=== PATIENT | female | born 1945 | race Caucasian/White ===

== ENCOUNTER 2019-01-14 14:19 | Emergency (ER) | payer MEDICARE, OTHER ==
[2019-01-14 14:51] LABS: BASOPHILS % (AUTO) 0.3 %; EOSINOPHILS % (AUTO) 0.3 %; HGB - HEMOGLOBIN 12.2 g/dL (12.0-16.0); LYMPHOCYTES # (AUTO) 0.6 10^3/uL (1.5-3.5); LYMPHOCYTES % (AUTO) 8.5 %; MEAN CORPUSCULAR HEMOGLOBIN 29.2 pg (27.0-31.0); MEAN CORPUSCULAR HGB CONC 33.3 g/dL (32.0-36.0); MEAN CORPUSCULAR VOLUME 87.8 fL (81.0-99.0); MEAN PLATELET VOLUME 8.3 fL (7.9-10.8); MONOCYTES # (AUTO) 0.8 10^3/uL (0.0-1.0); MONOCYTES % (AUTO) 12.3 %; NEUTROPHILS # (AUTO) 5.2 10^3/uL (1.5-6.6); NEUTROPHILS % (AUTO) 78.6 %; PLT - PLATELET COUNT 145 10^3/uL (130-450); RED BLOOD COUNT 4.16 10^6/uL (4.20-5.40); RED CELL DISTRIBUTION WIDTH 17.1 % (12.0-15.0); WHITE BLOOD COUNT 6.7 x10^3/uL (4.8-10.8)
[2019-01-14 15:10] LABS: ALBUMIN 3.7 g/dL (3.2-5.5); ALBUMIN/GLOBULIN RATIO 0.9 (1.0-2.2); BILIRUBIN,TOTAL 1.1 mg/dL (0.2-1.0); CALCIUM 8.8 mg/dL (8.5-10.3); CREATININE 1.2 mg/dL (0.4-1.0); TOTAL PROTEIN 7.8 g/dL (6.7-8.2)
[2019-01-14 15:29] LABS: BILIRUBIN,URINE NEGATIVE (NEGATIVE); GLUCOSE, URINE (UA) >=1000 mg/dL (NEGATIVE); KETONES,URINE (UA) NEGATIVE (NEGATIVE); LEUKOCYTE ESTERASE, URINE SMALL (NEGATIVE); NITRITE,URINE NEGATIVE (NEGATIVE); OCCULT BLOOD,URINE TRACE-LYSE (NEGATIVE); PROTEIN,URINE NEGATIVE (NEGATIVE); UROBILINOGEN,URINE 0.2 (NORMAL) E.U./dL (NORMAL)
--- NOTE | 2019-01-14 15:38 | ED Physician Documentation ---
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 - Present Medications Home Medications: Ambulatory Orders Medication Instructions Recorded Confirmed Adalimumab [Humira] 40 mg SQ UD 05/25/14 10/31/18 Aspirin 81 mg PO DAILY 05/25/14 10/31/18 Calcium Carb/Vitamin D3/Vit K1 1 tab PO BID 05/25/14 10/31/18 [Calcium + D Soft Chewable Tab] Colchicine [Colcrys] 1.2 mg PO DAILY 05/25/14 10/31/18 Folic Acid 1 mg PO DAILY 05/25/14 10/31/18 Hydrocodone/Acetaminophen [Vicodin 1 tab PO PRN PRN 05/25/14 10/31/18 5-300 mg Tablet] Hydroxychloroquine Sulfate 200 mg PO DAILY 05/25/14 10/31/18 Methotrexate 7.5 mg PO DAILY 05/25/14 10/31/18 Multivitamin [Multivitamins] 1 tab PO DAILY 05/25/14 10/31/18 [place]-3 Fatty Acids [Fish Oil] 1,000 mg PO BID 05/25/14 10/31/18 metFORMIN [Glucophage] 1,000 mg PO BID 05/25/14 10/31/18 predniSONE [Deltasone] 1 mg PO DAILY 05/25/14 10/31/18 Ascorbic Acid [Vitamin C with Vivi 1 tab PO DAILY 08/29/18 10/31/18 Hips] Biotin 1,000 mcg PO BID 08/29/18 10/31/18 Empagliflozin [Jardiance] 10 mg PO DAILY 08/29/18 10/31/18 Iron,Carbonyl [Iron Chews] 1 tab PO DAILY 08/29/18 10/31/18 - Allergies Allergies/Adverse Reactions: Allergies Allergy/AdvReac Type Severity Reaction Status Date / Time lisinopril Allergy Edema Verified 05/25/14 19:52 Penicillins AdvReac Hives Verified 05/25/14 19:52 Sulfa (Sulfonamide AdvReac Rash Verified 05/25/14 19:52 Antibiotics) venom-honey bee AdvReac Edema Verified 05/25/14 19:52 [bee venom (honey bee)] - Social History Does the pt smoke?: No Smoking Status: Former smoker Does the pt drink ETOH?: No Does the pt have substance abuse?: No - Immunizations Immunizations are current?: Yes - POLST Patient has POLST: No Results - Vitals Vitals: Vital Signs - 24 hr 01/14/19 14:24 Temperature 35.9 C L Heart Rate 96 Respiratory 14 Rate Blood Pressure 111/68 O2 Saturation 98 Oxygen O2 Source Room air - Labs Labs: Laboratory Tests 01/14/19 01/14/19 14:45 14:45 WBC 6.7 RBC 4.16 L Hgb 12.2 Hct 36.5 L MCV 87.8 MCH 29.2 MCHC 33.3 RDW 17.1 H Plt Count 145 MPV 8.3 Neut # (Auto) 5.2 Lymph # (Auto) 0.6 L [place] # (Auto) 0.8 Eos # (Auto) 0.0 Baso # (Auto) 0.0 Absolute Nucleated RBC 0.00 Nucleated RBC % 0.1 Sodium 134 L Potassium 3.8 Chloride 94 L Carbon Dioxide 25 Anion Gap 15.0 H BUN 34 H Creatinine 1.2 H Estimated GFR (MDRD) 44 L Glucose 156 H Calcium 8.8 Total Bilirubin 1.1 H AST 40 ALT 28 Alkaline Phosphatase 65 Total Protein 7.8 Albumin 3.7 Globulin 4.1 Albumin/Globulin Ratio 0.9 L Lipase 60 H
--- NOTE | 2019-01-14 15:39 | ED Physician Documentation ---
PD HPI URI - Stated complaint Stated Complaint: LETHARGIC - Chief complaint Chief Complaint: General - History obtained from History obtained from: Patient - History of Present Illness Timing - onset: How many days ago (4-5) Timing duration: Days (4-5) Timing details: Abrupt onset, Still present Associated symptoms: Nasal congestion, Other (feeling of general weakness, malaise, tired and poor appetite.). No: Fever, Chest pain, Dyspnea, NVD (but feeling of no appetite, and some food intake "doesn't taste good", so has not b een eating nor taking fluids much for 4 days. Feeling generally weak and lightheaded.) Contributing factors: No: Sick contact, Travel, Immunocompromised Worsened by: Activity Similar symptoms before: Has not had sx before Recently seen: Clinic (seen by PMD yesterday and presumed viral illness and told she seemed dehydrated. Told to drink more fluid.) Review of Systems Constitutional: reports: Myalgias, Fatigue. denies: Fever, Chills Nose: reports: Congestion. denies: Rhinorrhea / runny nose Throat: denies: Sore throat Cardiac: denies: Chest pain / pressure Respiratory: denies: Cough GI: denies: Abdominal Pain, Nausea (but feeling of no appetite), Vomiting, Constipation, Diarrhea : denies: Dysuria, Frequency Skin: denies: Rash, Lesions Neurologic: reports: Generalized weakness, Headache. 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 - Present Medications Home Medications: Ambulatory Orders Medication Instructions Recorded Confirmed Adalimumab [Humira] 40 mg SQ UD 05/25/14 10/31/18 Aspirin 81 mg PO DAILY 05/25/14 10/31/18 Calcium Carb/Vitamin D3/Vit K1 1 tab PO BID 05/25/14 10/31/18 [Calcium + D Soft Chewable Tab] Colchicine [Colcrys] 1.2 mg PO DAILY 05/25/14 10/31/18 Folic Acid 1 mg PO DAILY 05/25/14 10/31/18 Hydrocodone/Acetaminophen [Vicodin 1 tab PO PRN PRN 05/25/14 10/31/18 5-300 mg Tablet] Hydroxychloroquine Sulfate 200 mg PO DAILY 05/25/14 10/31/18 Methotrexate 7.5 mg PO DAILY 05/25/14 10/31/18 Multivitamin [Multivitamins] 1 tab PO DAILY 05/25/14 10/31/18 [place]-3 Fatty Acids [Fish Oil] 1,000 mg PO BID 05/25/14 10/31/18 metFORMIN [Glucophage] 1,000 mg PO BID 05/25/14 10/31/18 predniSONE [Deltasone] 1 mg PO DAILY 05/25/14 10/31/18 Ascorbic Acid [Vitamin C with Vivi 1 tab PO DAILY 08/29/18 10/31/18 Hips] Biotin 1,000 mcg PO BID 08/29/18 10/31/18 Empagliflozin [Jardiance] 10 mg PO DAILY 08/29/18 10/31/18 Iron,Carbonyl [Iron Chews] 1 tab PO DAILY 08/29/18 10/31/18 Cephalexin [Keflex] 500 mg PO TID #21 capsule 01/14/19 Ondansetron Odt [Zofran] 4 mg TL Q6H PRN #15 tablet 01/14/19 - Allergies Allergies/Adverse Reactions: Allergies Allergy/AdvReac Type Severity Reaction Status Date / Time lisinopril Allergy Edema Verified 05/25/14 19:52 Penicillins AdvReac Hives Verified 05/25/14 19:52 Sulfa (Sulfonamide AdvReac Rash Verified 05/25/14 19:52 Antibiotics) venom-honey bee AdvReac Edema Verified 05/25/14 19:52 [bee venom (honey bee)] - Social History Does the pt smoke?: No Smoking Status: Former smoker Does the pt drink ETOH?: No Does the pt have substance abuse?: No - Immunizations Immunizations are current?: Yes - POLST Patient has POLST: No PD ED PE NORMAL - Vitals Vital signs reviewed: Yes - General General: Alert and oriented X 3, No acute distress, Well developed/nourished - HEENT HEENT: Ears normal, Pharynx benign. No: Moist mucous membranes - Neck Neck: Supple, no meningeal sign, No adenopathy, No JVD - Cardiac Cardiac: RRR, No murmur - Respiratory Respiratory: Clear bilaterally - Abdomen Abdomen: Normal bowel sounds, Soft, Non tender, Non distended - Female Female : Deferred - Rectal Rectal: Deferred - Back Back: No CVA TTP - Derm Derm: Normal color, Warm and dry - Extremities Extremities: No tenderness to palpate, Normal ROM s pain, No edema, No calf tenderness / cord - Neuro Neuro: Alert and oriented X 3, No motor deficit, Normal speech Results - Vitals Vitals: Oxygen O2 Source Room air - Labs Labs: Microbiology 01/14/19 15:15 Urine Culture - Preliminary Urine,Clean Catch Escherichia Coli Laboratory Tests 01/14/19 01/14/19 01/14/19 14:45 14:45 14:45 WBC 6.7 RBC 4.16 L Hgb 12.2 Hct 36.5 L MCV 87.8 MCH 29.2 MCHC 33.3 RDW 17.1 H Plt Count 145 MPV 8.3 Neut # (Auto) 5.2 Lymph # (Auto) 0.6 L [place] # (Auto) 0.8 Eos # (Auto) 0.0 Baso # (Auto) 0.0 Absolute Nucleated RBC 0.00 Nucleated RBC % 0.1 Sodium 134 L Potassium 3.8 Chloride 94 L Carbon Dioxide 25 Anion Gap 15.0 H BUN 34 H Creatinine 1.2 H Estimated GFR (MDRD) 44 L Glucose 156 H Calcium 8.8 Magnesium Total Bilirubin 1.1 H AST 40 ALT 28 Alkaline Phosphatase 65 Total Protein 7.8 Albumin 3.7 Globulin 4.1 Albumin/Globulin Ratio 0.9 L Lipase 60 H TSH 2.19 Urine Color Urine Clarity Urine pH Ur Specific [place] Urine Protein Urine Glucose (UA) Urine Ketones Urine Occult Blood Urine Nitrite Urine Bilirubin Urine Urobilinogen Ur Leukocyte Esterase Urine RBC Urine WBC Ur Squamous Epith Cells Urine Bacteria Ur Microscopic Review Urine Culture Comments Influenza A (Rapid) Influenza B (Rapid) 01/14/19 01/14/19 01/14/19 14:45 15:15 16:25 WBC RBC Hgb Hct MCV MCH MCHC RDW Plt Count MPV Neut # (Auto) Lymph # (Auto) [place] # (Auto) Eos # (Auto) Baso # (Auto) Absolute Nucleated RBC Nucleated RBC % Sodium Potassium Chloride Carbon Dioxide Anion Gap BUN Creatinine Estimated GFR (MDRD) Glucose Calcium Magnesium 2.2 Total Bilirubin AST ALT Alkaline Phosphatase Total Protein Albumin Globulin Albumin/Globulin Ratio Lipase TSH Urine Color YELLOW Urine Clarity CLEAR Urine pH 6.0 Ur Specific [place] <=1.005 Urine Protein NEGATIVE Urine Glucose (UA) >=1000 H Urine Ketones NEGATIVE Urine Occult Blood TRACE-LYSE Urine Nitrite NEGATIVE Urine Bilirubin NEGATIVE Urine Urobilinogen 0.2 (NORMAL) Ur Leukocyte Esterase SMALL H Urine RBC 0-5 Urine WBC 11-25 H Ur Squamous Epith Cells RARE Squamous Urine Bacteria Rare Ur Microscopic Review INDICATED Urine Culture Comments INDICATED Influenza A (Rapid) Negative Influenza B (Rapid) Negative PD MEDICAL DECISION MAKING - ED course Complexity details: reviewed results, re-evaluated patient (seems improved with some IV fluids and antiemetics. Taking PO fluids. Headache improved and she does not seem meningitic, with no fever. I do not feel LP is indicated. ), considered differential, d/w patient Departure - Departure Disposition: Home, Self Care Clinical Impression: Malaise and fatigue, Dehydration UTI (urinary tract infection) Qualifiers: Urinary tract infection type: acute cystitis Hematuria presence: without hematuria Qualified Code(s): N30.00 - Acute cystitis without hematuria Condition: Stable Record reviewed to determine appropriate education?: Yes Instructions: ED UTI Cystitis Female Follow-Up: Ruthie Resendiz PA-C [Primary Care Provider] - Prescriptions: Cephalexin [Keflex] 500 mg PO TID #21 capsule Ondansetron Odt [Zofran] 4 mg TL Q6H PRN #15 tablet PRN Reason: Nausea / Vomiting Comments: Your basic blood tests are without any obvious significant abnormality. Your urine test does show signs of infection. This may be enough to account for your symptoms you have had. We will treat the bladder infection with cephalexin 3 times a day for a week. Drink lots of fluids. Ondansetron if needed for nausea or even just lack of appetite as that may be a mild version of nausea. Recheck if not improving over the next couple of days. Return if other symptoms develop. Discharge Date/Time: 01/14/19 18:13
[2019-01-14 15:47] LABS: BACTERIA,URINE Rare /HPF (None Seen); CLARITY,URINE CLEAR (CLEAR); RBC,URINE 0-5 /HPF (0-5); SQUAMOUS EPITHELIAL CELL,UR RARE Squamous (<= Few)
[2019-01-14] MEDS ORDERED: SODIUM CHLORIDE 0.9% 1,000 ML IV ONE ×2 (15:53→15:54)
[2019-01-14] MEDS ORDERED: ONDANSETRON 4 MG/2 ML VIAL IVP STA (15:54)
[2019-01-14] MEDS ORDERED: cefTRIAXone 1 GM VIAL IVP STA (15:57)
[2019-01-14] MEDS ORDERED: MORPHINE 2 MG/ML CARPUJECT IVP STA (17:17)
[2019-01-14] MEDS ORDERED: KETOROLAC 15 MG/ML VIAL IVP STA (17:17)
[2019-01-14] MEDS ORDERED: DEXAMETHASONE 10 MG/ML VIAL IVP STA (17:17)
[2019-01-14 18:15] VITALS: BP 131/59
== END 2019-01-14 18:13 | disposition home or self-care (01) ==
LOC: ED 14:19
DX: N30.00 Acute cystitis without hematuria (principal); E86.0 Dehydration; E11.9 Type 2 diabetes mellitus without complications; Z79.84 Long term (current) use of oral hypoglycemic drugs; Z87.891 Personal history of nicotine dependence
CPT/HCPCS: 36415; 80053; 81001; 81003; 83690; 83735; 84443; 85025; 87086; 87181; 87275; 87276; 96361; 96374; 96375; 99283; 99284

== ENCOUNTER 2019-05-18 11:34 | Outpatient (CLI) | payer MEDICARE ==
[2019-05-18 15:37] LABS: BASOPHILS % (AUTO) 0.7 %; EOSINOPHILS # (AUTO) 0.2 10^3/uL (0.0-0.7); EOSINOPHILS % (AUTO) 5.5 %; HGB - HEMOGLOBIN 10.8 g/dL (12.0-16.0); LYMPHOCYTES # (AUTO) 0.7 10^3/uL (1.5-3.5); LYMPHOCYTES % (AUTO) 15.2 %; MEAN CORPUSCULAR HEMOGLOBIN 28.6 pg (27.0-31.0); MEAN CORPUSCULAR HGB CONC 30.5 g/dL (32.0-36.0); MEAN CORPUSCULAR VOLUME 93.9 fL (81.0-99.0); MEAN PLATELET VOLUME 10.8 fL (7.9-10.8); MONOCYTES # (AUTO) 0.4 10^3/uL (0.0-1.0); MONOCYTES % (AUTO) 8.5 %; NEUTROPHILS % (AUTO) 69.6 %; PLT - PLATELET COUNT 122 10^3/uL (130-450); RED BLOOD COUNT 3.77 10^6/uL (4.20-5.40); RED CELL DISTRIBUTION WIDTH 15.1 % (12.0-15.0); WHITE BLOOD COUNT 4.3 x10^3/uL (4.8-10.8)
[2019-05-18 16:06] LABS: ALBUMIN 3.6 g/dL (3.2-5.5); BILIRUBIN,TOTAL 0.6 mg/dL (0.2-1.0); CALCIUM 9.9 mg/dL (8.5-10.3); CREATININE 0.9 mg/dL (0.4-1.0); TOTAL PROTEIN 7.2 g/dL (6.7-8.2)
== END 2019-05-18 23:59 | disposition home or self-care (01) ==
LOC: LAB 11:34
PROVIDERS: ATTEND Physician Assistant Medical
DX: R10.30 Lower abdominal pain, unspecified (principal)
CPT/HCPCS: 80053; 83690; 85025

== ENCOUNTER 2019-05-18 15:09 | Outpatient (CLI) | payer MEDICARE ==
[2019-05-18] MEDS ORDERED: IOVERSOL 320 100 ML VIAL IVP ONE ×2 (15:22→16:57)
[2019-05-18] MEDS ORDERED: IOVERSOL 320 50 ML VIAL ONE (15:22)
[2019-05-18] MEDS ORDERED: IOVERSOL 320 50 ML VIAL PO ONE (16:57)
--- NOTE | 2019-05-18 16:58 | CT Report ---
Reason: ABDOMINAL PAIN, SUPRAPUBIC Procedure Date: 05/18/2019 Accession Number: [id number] / [id number] Procedure: CT - Abdomen/Pelvis W CPT Code: FULL RESULT: EXAM: CT ABDOMEN AND PELVIS EXAM DATE: 05/18/2019 04:30 PM. CLINICAL HISTORY: ABDOMINAL PAIN, SUPRAPUBIC. COMPARISONS: None. TECHNIQUE: Routine helical CT imaging was performed through the abdomen and pelvis. IV contrast: 100 cc Optiray 320. Enteric contrast: Positive. Reconstructions: Coronal and sagittal. In accordance with CT protocol optimization, one or more of the following dose reduction techniques were utilized for this exam: automated exposure control, adjustment of mA and/or KV based on patient size, or use of iterative reconstructive technique. FINDINGS: Lung Bases: Unremarkable. Liver: Normal. No masses. Gallbladder/Bile Ducts: The gallbladder is surgically absent. No significant bile duct dilatation. Spleen: There is mild splenomegaly. Subcentimeter hypodensity within the posterior cortex of the spleen is too small to characterize. Pancreas: Normal. Adrenal Glands: Normal. Kidneys: Normal. No masses or hydronephrosis. Peritoneal Cavity/Bowel: No dilated or thick-walled bowel is seen. No intraperitoneal free air or free fluid. No enlarged mesenteric or retroperitoneal lymph nodes. No evidence of appendicitis. Pelvic Organs: Normal. The bladder and visualized pelvic organs are within normal limits. Vasculature: No aneurysms or other significant abnormality. Bones: There is mild to moderate multilevel lumbar spine degenerative disease. Other: None. IMPRESSION: Negative contrast enhanced CT of the abdomen and pelvis. No acute solid or hollow viscus organ abnormality to account for the patient's presentation. RADIA
== END 2019-05-18 15:10 | disposition home or self-care (01) ==
LOC: DI 15:09
PROVIDERS: ATTEND Physician Assistant Medical
DX: R10.30 Lower abdominal pain, unspecified (principal)
CPT/HCPCS: 74177; 80053; 83690; 85025; Q9967

== ENCOUNTER 2019-05-30 08:00 | Outpatient (CLI) | payer MEDICARE | END 2019-05-30 23:59 | disposition home or self-care (01) | LOC: LAB.WCP 08:00 | PROVIDERS: ATTEND Physician Assistant Medical | DX: R10.30 Lower abdominal pain, unspecified (principal) | CPT/HCPCS: 87077; 87086; 87181 ==

== ENCOUNTER 2019-08-04 14:51 | Outpatient (CLI) | payer MEDICARE ==
[2019-08-04 15:06] LABS: HGB - HEMOGLOBIN 11.6 g/dL (12.0-16.0); MEAN CORPUSCULAR HEMOGLOBIN 29.1 pg (27.0-31.0); MEAN CORPUSCULAR HGB CONC 30.5 g/dL (32.0-36.0); MEAN CORPUSCULAR VOLUME 95.5 fL (81.0-99.0); MEAN PLATELET VOLUME 9.5 fL (7.9-10.8); RED BLOOD COUNT 3.98 10^6/uL (4.20-5.40); RED CELL DISTRIBUTION WIDTH 14.7 % (12.0-15.0); WHITE BLOOD COUNT 5.7 x10^3/uL (4.8-10.8)
[2019-08-04 15:35] LABS: CREATININE,URINE 37.8 mg/dL; TOTAL PROTEIN,URINE TIMED < 6 mg/dL
== END 2019-08-04 14:52 | disposition home or self-care (01) ==
LOC: LAB 14:51
PROVIDERS: ATTEND Internal Medicine Nephrology
DX: D70.9 Neutropenia, unspecified (principal); D63.1 Anemia in chronic kidney disease; R80.9 Proteinuria, unspecified
CPT/HCPCS: 36415; 82570; 84156; 85027

== ENCOUNTER 2021-02-20 08:38 | Outpatient (CLI) | payer MEDICARE ==
[2021-02-20 12:47] LABS: ESTIMATED AVERAGE GLUCOSE 249 mg/dL (70-100); HEMOGLOBIN A1c% 10.3 % (4.27-6.07)
== END 2021-02-20 23:59 | disposition home or self-care (01) ==
LOC: LAB.WCP 08:38
PROVIDERS: ATTEND Physician Assistant Medical
DX: E11.9 Type 2 diabetes mellitus without complications (principal)
CPT/HCPCS: 36415; 83036

== ENCOUNTER 2021-05-19 08:42 | Outpatient (CLI) | payer MEDICARE ==
[2021-05-19 09:15] LABS: CHOLESTEROL 181 mg/dL; HDL CHOLESTEROL 89 mg/dL; LDL CHOLESTEROL,CALCULATED 63 mg/dL; LDL/HDL RATIO 0.7 (<4.4); TRIGLYCERIDES 147 mg/dL; VLDL CHOLESTEROL 29 mg/dL
[2021-05-19 09:25] LABS: THYROID STIMULATING HORMONE 2.2 uIU/mL (0.34-5.60)
[2021-05-19 11:28] LABS: ESTIMATED AVERAGE GLUCOSE 192 mg/dL (70-100); HEMOGLOBIN A1c% 8.3 % (4.27-6.07)
== END 2021-05-19 08:43 | disposition home or self-care (01) ==
LOC: LAB 08:42
PROVIDERS: ATTEND Physician Assistant Medical
DX: E78.5 Hyperlipidemia, unspecified (principal); E11.9 Type 2 diabetes mellitus without complications
CPT/HCPCS: 36415; 80061; 83036; 83721; 84443

== ENCOUNTER 2021-05-22 10:09 | Outpatient (CLI) | payer MEDICARE ==
[2021-05-22] MEDS ORDERED: BUFFERED LIDOCAINE 10 ML SYRINGE ONE (10:40)
[2021-05-22] MEDS ORDERED: LACTATED RINGERS 1,000 ML IV ONE ×2 (10:47→12:22)
[2021-05-22 10:56] LABS: HCT - HEMATOCRIT 32.2 % (37.0-47.0); HGB - HEMOGLOBIN 10.5 g/dL (12.0-16.0)
[2021-05-22] MEDS ORDERED: hydrALAZINE INJ 20 MG/ML VIAL ONE (11:01)
[2021-05-22] MEDS ORDERED: NALOXONE 0.4 MG/ML VIAL ONE (11:01)
[2021-05-22] MEDS ORDERED: ONDANSETRON 4 MG/2 ML VIAL ONE (11:01)
[2021-05-22] MEDS ORDERED: FLUMAZENIL 0.1 MG/1 ML 5 ML MDV IVP ONE (11:01)
[2021-05-22] MEDS ORDERED: diphenhydrAMINE INJ 50 MG/ML VIAL ONE (11:01)
[2021-05-22] MEDS ORDERED: ATROPINE ABBOJECT 1 MG/10 ML SYRINGE IVP ONE (11:02)
[2021-05-22] MEDS ORDERED: LABETALOL 20 MG/4 ML SYRINGE IVP ONE (11:02)
[2021-05-22] MEDS ORDERED: EPINEPHrine 1 MG/ML VIAL ONE (11:02)
[2021-05-22] MEDS ORDERED: fentaNYL 250 MCG/5 ML VIAL ONE (11:02)
[2021-05-22] MEDS ORDERED: MIDAZOLAM 2 MG/2 ML VIAL ONE ×2 (11:03→11:34)
[2021-05-22 11:09] LABS: INR 1.1 (0.8-1.2); PT - PROTHROMBIN TIME 12.3 secs (9.9-12.6)
[2021-05-22] MEDS ORDERED: fentaNYL 100 MCG/2 ML VIAL ONE (11:34)
[2021-05-22] MEDS ORDERED: BUFFERED LIDOCAINE 10 ML SYRINGE IU ONE (13:24)
[2021-05-22 14:18] VITALS: BP 134/70
--- NOTE | 2021-05-22 14:59 | CT Report ---
PROCEDURE: BONE MARROW BX Sedation analgesia for 10 minutes. INDICATIONS: PANCYTOPENIA, RT BREAST CANCER TECHNIQUE: The indications, alternatives, benefits, risks, and possible complications of the procedure were comm unicated to the patient. Informed written consent from the patient was obtained and placed in the art. Continuous EKG and hemodynamic monitoring was started by trained personnel. For radiation dose reduction, the following was used: automated exposure control, adjustment of mA and/or kV according to patient size. The patient was brought to the CT suite and army senior officer spiral CT imaging was performed with localization g rid. The appropriate site for percutaneous access to the biopsy target was marked, was prepped and d raped sterilely, and was infused with local anaesthesia. Under CT guidance, a core biopsy trocar and needle set was advanced to the biopsy target, and specimen(s) were obtained. The trocar and needle were then removed, and the patient was sent for post-procedure monitoring. COMPARISON: None. FINDINGS: Biopsy site: Left iliac bone. Needle: 12 gauge biopsy needle with introducer trocar. Number of passes: No core biopsy and 20 cc of marrow aspirate Medications: 1% lidocaine for local anaesthesia. IV Fentanyl and Versed for conscious sedation for 10 minutes (see nursing record). Complications: None. IMPRESSION: Successful CT-guided biopsy of left iliac bone marrow. No immediate complications. Reviewed by: Nicolasa Kraus MD, PhD on 05/22/2021 2:58 PM PDT Approved by: Nicolasa Kraus MD, PhD on 05/22/2021 2:58 PM PDT Station ID: [id number]
--- NOTE | 2021-07-14 10:03 | CT Report ---
PROCEDURE: CT scan for Needle Biopsy INDICATIONS: PANCYTOPENIA, RT BREAST CA IMPRESSION: This study has been previously dictated, CT procedure combined with the needle biopsy pro cedure. Please refer to that study report. Reviewed by: Ruslan Stark MD on 07/14/2021 10:01 AM PDT Approved by: Ruslan Stark MD on 07/14/2021 10:01 AM PDT Station ID: [id number]
== END 2021-05-22 10:10 | disposition home or self-care (01) ==
LOC: DI 10:09
PROVIDERS: ATTEND Physician Assistant
DX: D61.818 Other pancytopenia (principal); C50.911 Malignant neoplasm of unspecified site of right female breast
CPT/HCPCS: 36415; 38220; 77012; 85014; 85018; 85049; 85610; J7120; 38221; 87427; 88184; 88185; 88305; 88311; 88313

== ENCOUNTER 2021-07-29 10:53 | Emergency (ER) | payer MEDICARE ==
[2021-07-29 11:34] LABS: BASOPHILS # (AUTO) 0.1 10^3/uL (0.0-0.1); BASOPHILS % (AUTO) 1.1 %; EOSINOPHILS # (AUTO) 0.2 10^3/uL (0.0-0.7); EOSINOPHILS % (AUTO) 4.4 %; HCT - HEMATOCRIT 32.8 % (37.0-47.0); HGB - HEMOGLOBIN 10.4 g/dL (12.0-16.0); LYMPHOCYTES # (AUTO) 0.5 10^3/uL (1.5-3.5); LYMPHOCYTES % (AUTO) 9.9 %; MEAN CORPUSCULAR HEMOGLOBIN 29.5 pg (27.0-31.0); MEAN CORPUSCULAR HGB CONC 31.7 g/dL (32.0-36.0); MEAN CORPUSCULAR VOLUME 93.2 fL (81.0-99.0); MEAN PLATELET VOLUME 10.8 fL (7.9-10.8); MONOCYTES # (AUTO) 0.4 10^3/uL (0.0-1.0); MONOCYTES % (AUTO) 9.3 %; NEUTROPHILS # (AUTO) 3.4 10^3/uL (1.5-6.6); NEUTROPHILS % (AUTO) 74.9 %; PLT - PLATELET COUNT 86 10^3/uL (130-450); RED BLOOD COUNT 3.52 10^6/uL (4.20-5.40); RED CELL DISTRIBUTION WIDTH 12.2 % (12.0-15.0); WHITE BLOOD COUNT 4.5 x10^3/uL (4.8-10.8)
--- NOTE | 2021-07-29 11:39 | ED Physician Documentation ---
History of Present Illness - Stated complaint Stated Complaint: CHEST PX - Chief complaint Chief Complaint: Cardiac - Additonal information Additional information: 75-year-old female presents the emergency department for evaluation of 2 to 3 days chest pressure and discomfort. She reports that it is mostly at night when laying flat. She develops a pressure in her chest and often has to cough. Pain is severe until she sits up. If she remains sitting up or propped up on her pillow she is able to fall back asleep. States that the chest pain accompanies shortness of breath. She typically was able to walk about a mile a day but now gets short of breath when walking perhaps 500 feet. she denies leg swelling. no personal hx of dvt. She does have a history of diabetes as well as being a former smoker apparently also has a history of RA, zapata cytopenia and breast cancer. She is immune suppressed on lefulmide, prednisone and Plaquenil. She is also taking tamoxifen. Recently undewent a bone marrow biopsy for further evaluation of her pancytopenia Denies any personal history of coronary artery disease previos stroke Review of Systems Constitutional: denies: Fever, Chills Eyes: reports: Reviewed and negative Ears: reports: Reviewed and negative Nose: reports: Reviewed and negative Throat: reports: Reviewed and negative Cardiac: reports: Chest pain / pressure. denies: Palpitations, Pedal edema, Calf pain Respiratory: denies: Dyspnea, Cough, Hemoptysis, Wheezing GI: reports: Reviewed and negative. denies: Nausea, Vomiting : reports: Reviewed and negative. 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 - Present Medications Home Medications: Ambulatory Orders Medication Instructions Recorded Confirmed Aspirin 81 mg PO DAILY 05/25/14 07/29/21 Calcium Carb/Vitamin D3/Vit K1 600 mg PO BID 05/25/14 07/29/21 [Calcium + D Soft Chewable Tab] Folic Acid 1 mg PO DAILY 05/25/14 07/29/21 Multivitamin [Multivitamins] 1 tab PO DAILY 05/25/14 07/29/21 [place]-3 Fatty Acids [Fish Oil] 1,000 mg PO BID 05/25/14 07/29/21 metFORMIN [Glucophage] 1,000 mg PO BID 05/25/14 07/29/21 Ascorbic Acid [Vitamin C with Vivi 1 tab PO DAILY 08/29/18 07/29/21 Hips] Iron,Carbonyl [Iron Chews] 65 mg PO DAILY 08/29/18 07/29/21 Tamoxifen [Nolvadex] 20 mg PO DAILY 03/27/19 07/29/21 Glimepiride [Amaryl] 2 mg PO DAILY 07/29/21 07/29/21 Leflunomide [Arava] 20 mg PO DAILY 07/29/21 07/29/21 - Allergies Allergies/Adverse Reactions: Allergies Allergy/AdvReac Type Severity Reaction Status Date / Time lisinopril Allergy Edema Verified 07/29/21 11:05 Penicillins AdvReac Hives Verified 07/29/21 11:05 Sulfa (Sulfonamide AdvReac Rash Verified 07/29/21 11:05 Antibiotics) venom-honey bee AdvReac Edema Verified 07/29/21 11:05 [bee venom (honey bee)] - Social History Does the pt smoke?: No Smoking Status: Never smoker Does the pt drink ETOH?: No Does the pt have substance abuse?: No - Immunizations Immunizations are current?: Yes - POLST Patient has POLST: No PD ED PE EXPANDED - General General: Alert, No acute distress, Well developed/nourished - Neck Neck: Supple w/out meningeal sx. No: Adenopathy - Cardiac Cardiac: Regular Rate, Radial strong equal, Cap refill < 2 sec. No: Murmur Present - Respiratory Respiratory: Clear to ausultation june. No: Distress, Labored - Abdomen Abdomen: Normal Bowel sounds. No: Hyperactive BS, Decreased BS - Derm Derm: Normal color, Warm and dry. No: Rash - Extremities Extremities: Normal. No: Deformity, Tenderness - Neuro Neuro: Alert and Oriented X 3, CNII-XII intact - GCS Eye Opening: Spontaneous Motor: Obeys Commands Verbal: Oriented Total: 15 Results - Vitals Vitals: Vital Signs - 24 hr 07/29/21 07/29/21 07/29/21 11:00 12:39 13:09 Temperature 37.0 C Heart Rate 101 H 104 H 114 H Respiratory 22 16 20 Rate Blood Pressure 132/73 H 132/73 H 154/84 H O2 Saturation 97 99 96 07/29/21 07/29/21 07/29/21 13:30 14:00 14:30 Temperature Heart Rate 103 H 100 101 H Respiratory 22 17 16 Rate Blood Pressure 160/86 H 149/87 H 150/94 H O2 Saturation 97 100 99 07/29/21 07/29/21 15:00 15:30 Temperature Heart Rate 102 H 100 Respiratory 19 18 Rate Blood Pressure 150/85 H 149/60 H O2 Saturation 98 99 Oxygen O2 Source Room air - EKG (time done) 1058 Rate: Rate (enter#) (100) Rhythm: Sinus tachycardia Intervals: Other (IVCD not RBBB or LBBB) QRS: Poor R wave progression. No: Normal (Wide) Ischemia: Non specific changes Compare to prior EKG: Old EKG unavailable Computer interpretation: Agree with computer - Labs Labs: Laboratory Tests 07/29/21 07/29/21 07/29/21 11:27 11:27 11:27 WBC 4.5 L RBC 3.52 L Hgb 10.4 L Hct 32.8 L MCV 93.2 MCH 29.5 MCHC 31.7 L RDW 12.2 Plt Count 86 L MPV 10.8 Neut # (Auto) 3.4 Lymph # (Auto) 0.5 L [place] # (Auto) 0.4 Eos # (Auto) 0.2 Baso # (Auto) 0.1 Absolute Nucleated RBC 0.00 Nucleated RBC % 0.0 Sodium 136 Potassium 4.7 Chloride 101 Carbon Dioxide 24 Anion Gap 11.0 BUN 16 Creatinine 1.2 H Estimated GFR (MDRD) 44 L Glucose 215 H Calcium 9.0 Total Bilirubin 0.6 AST 40 ALT 37 Alkaline Phosphatase 43 Troponin I High Sens 429.1 H* Total Protein 6.6 L Albumin 3.3 Globulin 3.3 Albumin/Globulin Ratio 1.0 Lipase 42 Nasal Adenovirus (PCR) Nasal B. parapertussis DNA (PCR) Nasal Coronavir 229E PCR Nasal Coronavir HKU1 PCR Nasal Coronavir NL63 PCR Nasal Coronavir OC43 PCR Nasal Enterovir/Rhinovir PCR Nasal Influenza B PCR Nasal Influenza A PCR Nasal Parainfluen 1 PCR Nasal Parainfluen 2 PCR Nasal Parainfluen 3 PCR Nasal Parainfluen 4 PCR Nasal RSV (PCR) Nasal B.pertussis DNA PCR Nasal C.pneumoniae (PCR) Matt Human Metapneumo PCR Nasal M.pneumoniae (PCR) Nasal SARS-CoV-2 (PCR) 07/29/21 07/29/21 12:26 13:21 WBC RBC Hgb Hct MCV MCH MCHC RDW Plt Count MPV Neut # (Auto) Lymph # (Auto) [place] # (Auto) Eos # (Auto) Baso # (Auto) Absolute Nucleated RBC Nucleated RBC % Sodium Potassium Chloride Carbon Dioxide Anion Gap BUN Creatinine Estimated GFR (MDRD) Glucose Calcium Total Bilirubin AST ALT Alkaline Phosphatase Troponin I High Sens 482.1 H* Total Protein Albumin Globulin Albumin/Globulin Ratio Lipase Nasal Adenovirus (PCR) NOT DETECTED Nasal B. parapertussis DNA (PCR) NOT DETECTED Nasal Coronavir 229E PCR NOT DETECTED Nasal Coronavir HKU1 PCR NOT DETECTED Nasal Coronavir NL63 PCR NOT DETECTED Nasal Coronavir OC43 PCR NOT DETECTED Nasal Enterovir/Rhinovir PCR NOT DETECTED Nasal Influenza B PCR NOT DETECTED Nasal Influenza A PCR NOT DETECTED Nasal Parainfluen 1 PCR NOT DETECTED Nasal Parainfluen 2 PCR NOT DETECTED Nasal Parainfluen 3 PCR NOT DETECTED Nasal Parainfluen 4 PCR NOT DETECTED Nasal RSV (PCR) NOT DETECTED Nasal B.pertussis DNA PCR NOT DETECTED Nasal C.pneumoniae (PCR) NOT DETECTED Matt Human Metapneumo PCR NOT DETECTED Nasal M.pneumoniae (PCR) NOT DETECTED Nasal SARS-CoV-2 (PCR) NOT DETECTED - Rads (name of study) CXR Radiology: Final report received (Interstitial prominence which could represent chronic lung disease, pulmonary edema or atypical pneumonia.) PD MEDICAL DECISION MAKING - ED course Complexity details: reviewed results, considered differential, d/w patient ED course: 75-year-old female who has a history of diabetes, rheumatoid arthritis as well as pancytopenia who is immune suppressed on Plaquenil and prednisone presents emergency department with 3 days of chest discomfort. Described as a throbbing in her chest pressure-like. Worse when she lays down. Feels better after coughing or sitting upright. Screening EKG is nonischemic though no previous for comparison. First high- sensitivity troponin is 429. Patient does have many risk factors for coronary artery disease including history of diabetes tobaccoism as well as immune suppression. She was started on cardiac heparin infusion per protocol as well as given 80 mg of atorvastatin and 325 of aspirin. [facility] does not have cardiology services thus we will start the process of looking for a cardiology bed at an outlying facility. Patient is not yet assigned to a occup ther. 1310: I have spoken with Dr. Deshpande cardiology with [facility]. he accepts the pt to [facility] when a bed is available. Appropriate COBRA completed Departure - Departure Disposition: 02 Transfer Acute Care Hosp Clinical Impression: NSTEMI (non-ST elevated myocardial infarction), History of diabetes mellitus, type II, History of breast cancer Discharge Date/Time: 07/29/21 16:02
--- NOTE | 2021-07-29 11:42 | XRAY Report ---
PROCEDURE: Chest 1 View X-Ray INDICATIONS: Chest pain TECHNIQUE: One view of the chest was acquired. COMPARISON: None FINDINGS: Surgical changes and devices: Surgical clips noted in the right axilla. Lungs and pleura: No pleural effusions or pneumothorax. Bilateral lung interstitial prominence which could represent chronic lung disease, pulmonary edema or atypical pneumonia. Mediastinum: Mediastinal contours appear normal. Heart size is normal. Bones and chest wall: No suspicious bony lesions. Overlying soft tissues appear unremarkable. IMPRESSION: Interstitial prominence which could represent chronic lung disease, pulmonary edema or atypical pneum onia. Reviewed by: Nicolasa Kraus MD, PhD on 07/29/2021 11:40 AM PDT Approved by: Nicolasa Kraus MD, PhD on 07/29/2021 11:40 AM PDT Station ID: [id number]
[2021-07-29 11:51] LABS: ALBUMIN 3.3 g/dL (3.2-5.5); BILIRUBIN,TOTAL 0.6 mg/dL (0.2-1.0); CREATININE 1.2 mg/dL (0.4-1.0); POTASSIUM 4.7 mmol/L (3.5-5.0); TOTAL PROTEIN 6.6 g/dL (6.7-8.2)
[2021-07-29] MEDS ORDERED: ATORVASTATIN 40 MG TABLET PO STA (12:02)
[2021-07-29] MEDS ORDERED: ASPIRIN CHEW 81 MG TABLET PO STA (12:02)
[2021-07-29] MEDS ORDERED: NITROGLYCERIN SL 0.4 MG TABLET SL STA (12:07)
[2021-07-29] MEDS ORDERED: HEPARIN 25000UNITS/500ML (D5W) 25,000 UNIT/500 ML BAG IV SCH (13:00)
[2021-07-29 14:07] LABS: B. PARAPERTUSSIS- RESP PCR PAN NOT DETECTED; B. PERTUSSIS- RESP PCR PANEL NOT DETECTED; C. PNEUMONIAE- RESP PCR PANEL NOT DETECTED; CORONAVIRUS 229E-RESP PCR NOT DETECTED; CORONAVIRUS HKU1-RESP PCR NOT DETECTED; CORONAVIRUS NL63-RESP PCR NOT DETECTED; CORONAVIRUS OC43-RESP PCR NOT DETECTED; HUMAN METAPNEUMOVIRUS NOT DETECTED; INFLUENZA A- RESP PCR PANEL NOT DETECTED; INFLUENZA B - RESP PCR PANEL NOT DETECTED; M. PNEUMONIAE- RESP PCR PANEL NOT DETECTED; PARAINFLUENZA VIRUS 1 NOT DETECTED; PARAINFLUENZA VIRUS 2 NOT DETECTED; PARAINFLUENZA VIRUS 3 NOT DETECTED; PARAINFLUENZA VIRUS 4 NOT DETECTED; RHINOVIRUS/ENTEROVIRUS NOT DETECTED; RSV- RESP PCR PANEL NOT DETECTED; SARS-CoV-2 -RESP PCR PANEL NOT DETECTED
[2021-07-29 15:41] VITALS: BP 149/60
== END 2021-07-29 16:02 | disposition short-term general hospital (02) ==
LOC: ED 10:53
DX: I21.4 Non-ST elevation (NSTEMI) myocardial infarction (principal); R00.0 Tachycardia, unspecified; Z87.891 Personal history of nicotine dependence; E11.9 Type 2 diabetes mellitus without complications; Z79.84 Long term (current) use of oral hypoglycemic drugs; D61.818 Other pancytopenia; M06.9 Rheumatoid arthritis, unspecified; D84.9 Immunodeficiency, unspecified; Z79.899 Other long term (current) drug therapy; Z79.52 Long term (current) use of systemic steroids; Z79.82 Long term (current) use of aspirin; Z85.3 Personal history of malignant neoplasm of breast; Z20.822 Contact with and (suspected) exposure to COVID-19
CPT/HCPCS: 36415; 71045; 80053; 83690; 84484; 85025; 87631; 93005; 96374; 99284; 99285; A9270; 0202U

== ENCOUNTER 2021-08-26 08:50 | Outpatient (CLI) | payer MEDICARE ==
[2021-08-26 12:18] LABS: CALCIUM 8.6 mg/dL (8.5-10.3); CREATININE 0.9 mg/dL (0.4-1.0); POTASSIUM 4.2 mmol/L (3.5-5.0)
[2021-08-26 12:57] LABS: ESTIMATED AVERAGE GLUCOSE 177 mg/dL (70-100); HEMOGLOBIN A1c% 7.8 % (4.27-6.07)
== END 2021-08-26 23:59 | disposition home or self-care (01) ==
LOC: LAB.WCP 08:50
PROVIDERS: ATTEND Physician Assistant Medical
DX: E11.9 Type 2 diabetes mellitus without complications (principal)
CPT/HCPCS: 36415; 80048; 83036

== ENCOUNTER 2021-11-06 08:30 | Outpatient (CLI) | payer MEDICARE | END 2021-11-06 23:59 | disposition home or self-care (01) | LOC: LAB.N 08:30 | PROVIDERS: ATTEND Nurse Practitioner | DX: R05.8 Other specified cough (principal); Z20.822 Contact with and (suspected) exposure to COVID-19 ==

== ENCOUNTER 2021-11-23 09:28 | Emergency (ER) | payer MEDICARE ==
[2021-11-23] MEDS ORDERED: DEXAMETHASONE 10 MG/ML VIAL PO STA (11:15)
[2021-11-23] MEDS ORDERED: CHERRY SYRUP 10 ML UDC PO ONE (11:15)
[2021-11-23] MEDS ORDERED: KETOROLAC 60 MG/2 ML VIAL IM STA (11:15)
--- NOTE | 2021-11-23 11:44 | XRAY Report ---
PROCEDURE: Chest 2 View X-Ray INDICATIONS: persistent cough TECHNIQUE: 2 view(s) of the chest. COMPARISON: 07/29/2021 FINDINGS: Surgical changes and devices: Median sternotomy. Right chest wall surgical clips. Lungs and pleura: No pleural effusions or pneumothorax. Lungs are clear. Mediastinum: Mediastinal contours are normal. Heart size is normal. Bones and chest wall: No suspicious bony abnormalities. Soft tissues appear unremarkable. IMPRESSION: No acute process. Reviewed by: Villa Conklin MD on 11/23/2021 11:43 AM PST Approved by: Villa Conklin MD on 11/23/2021 11:43 AM [facility] Station ID: [id number]
--- NOTE | 2021-11-23 12:31 | ED Physician Documentation ---
PD HPI URI - Stated complaint Stated Complaint: COUGH - Chief complaint Chief Complaint: Resp - History obtained from History obtained from: Patient - History of Present Illness Timing - onset: How many months ago (1) Timing duration: Months (1) Timing details: Gradual onset, Still present, Waxing and waning Associated symptoms: Nasal congestion, Dry cough, Chest pain. No: Fever, Chills, Sweats Contributing factors: Other (immunized and tested with this episode). No: Sick contact Improves by: Rest, Medication Worsened by: Activity Similar symptoms before: Diagnosis (bronchitis and COPD) Recently seen: Clinic - Additional information Additional information: 76-year-old female with a history of COPD has developed a cough that she has had for the past month. She did take a Z-Davis which seemed to help a bit but did not resolve the cough. She has had similar symptoms previously and required a second Z-Davis. She felt that she needed this this time around as well. She has developed some anterior chest wall pain and has had a sternotomy done in July of this year with CABG. She has not been able to stop her coughing and her chest pain is getting worse. She denies specific shortness of breath and she has not had used her inhaler. She does not feel like she is getting any phlegm up. She relates that she has been tested for Covid and she is immunized and boosted. Review of Systems Constitutional: denies: Fever Eyes: denies: Decreased vision Ears: denies: Ear pain Nose: reports: Congestion. denies: Rhinorrhea / runny nose Throat: denies: Sore throat Cardiac: reports: Chest pain / pressure. denies: Palpitations, Pedal edema, Calf pain Respiratory: reports: Cough. 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: Tubal ligation - Present Medications Home Medications: Ambulatory Orders Medication Instructions Recorded Confirmed Aspirin 81 mg PO DAILY 05/25/14 07/29/21 Calcium Carb/Vitamin D3/Vit K1 600 mg PO BID 05/25/14 07/29/21 [Calcium + D Soft Chewable Tab] Folic Acid 1 mg PO DAILY 05/25/14 07/29/21 Multivitamin [Multivitamins] 1 tab PO DAILY 05/25/14 07/29/21 [place]-3 Fatty Acids [Fish Oil] 1,000 mg PO BID 05/25/14 07/29/21 metFORMIN [Glucophage] 1,000 mg PO BID 05/25/14 07/29/21 Ascorbic Acid [Vitamin C with Vivi 1 tab PO DAILY 08/29/18 07/29/21 Hips] Iron,Carbonyl [Iron Chews] 65 mg PO DAILY 08/29/18 07/29/21 Tamoxifen [Nolvadex] 20 mg PO DAILY 03/27/19 07/29/21 Glimepiride [Amaryl] 2 mg PO DAILY 07/29/21 07/29/21 Leflunomide [Arava] 20 mg PO DAILY 07/29/21 07/29/21 Azithromycin [Zithromax] 250 mg PO DAILY #6 tablet 11/23/21 Benzonatate [Tessalon] 100 - 200 mg PO TID PRN #30 cap 11/23/21 - Allergies Allergies/Adverse Reactions: Allergies Allergy/AdvReac Type Severity Reaction Status Date / Time lisinopril Allergy Edema Verified 11/23/21 10:05 Penicillins AdvReac Hives Verified 11/23/21 10:05 Sulfa (Sulfonamide AdvReac Rash Verified 11/23/21 10:05 Antibiotics) venom-honey bee AdvReac Edema Verified 11/23/21 10:05 [bee venom (honey bee)] - Social History Does the pt smoke?: No Smoking Status: Never smoker Does the pt drink ETOH?: No Does the pt have substance abuse?: No - Immunizations Immunizations are current?: Yes - POLST Patient has POLST: No PD ED PE NORMAL - Vitals Vital signs reviewed: Yes (Normal) - General General: Alert and oriented X 3, No acute distress, Well developed/nourished - HEENT HEENT: Atraumatic, PERRL, EOMI, Ears normal, Other (Dry mucous membrane) - Neck Neck: Supple, no meningeal sign, No bony TTP - Cardiac Cardiac: RRR, No murmur - Respiratory Respiratory: No respiratory distress, Clear bilaterally, Other (Anterior chest wall tenderness to palpation reproduces the symptoms the patient is having with chest pain) - Abdomen Abdomen: Normal bowel sounds, Soft, Non tender, Non distended, No organomegaly - Back Back: No CVA TTP, No spinal TTP - Derm Derm: Normal color, Warm and dry, No rash - Extremities Extremities: No deformity, No edema - Neuro Neuro: Alert and oriented X 3, 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, No motor deficit, No sensory deficit, Normal speech Eye Opening: Spontaneous Motor: Obeys Commands Verbal: Oriented GCS Score: 15 - Psych Psych: Normal mood, Normal affect Results - Vitals Vitals: Vital Signs - 24 hr 11/23/21 10:02 Temperature 36.4 C L Heart Rate 92 Respiratory 16 Rate Blood Pressure 130/61 O2 Saturation 96 Oxygen O2 Source Room air - Rads (name of study) Chest 2 view Radiology: Prelim report reviewed (Impression: No acute process.), EMP read indepedently, See rad report PD MEDICAL DECISION MAKING - ED course Complexity details: reviewed old records, reviewed results, re-evaluated patient, considered differential, d/w patient ED course: 76-year-old female with history of COPD has a cough persistent over the past month and she is not making any phlegm she did have some improvement with a azithromycin and she has had this improvement previously with a azithromycin and required a second round of treatment. For resolution. Today she has chest wall pain associated with frequent coughing and she has had a sternotomy within the last 3 months. She is administered dexamethasone and Toradol with improvement in her pain a chest x-ray is obtained which does not demonstrate any evidence of an infiltrate. She does not remember having to be on a course of prednisone previously for COPD. Today we will treat her with a Z-Davis and I will try to obtain a refill for that as well. I will provide some Tessalon Perle for cough suppression. She is using some Robitussin-DM which seems to help somewhat. Departure - Departure Disposition: 01 Home, Self Care Clinical Impression: Bronchitis, Moderate COPD (chronic obstructive pulmonary disease), Costochondritis, acute Condition: Stable Instructions: ED Bronchitis Asthmatic, ED Chest Pain Costochondritis Follow-Up: Ruthie Resendiz PA-C [Primary Care Provider] - Prescriptions: Benzonatate [Tessalon] 100 - 200 mg PO TID PRN #30 cap PRN Reason: Cough Azithromycin [Zithromax] 250 mg PO DAILY #6 tablet Comments: Marcie today it looks like you have a bronchitis which is persistent and coughing paroxysms. You have been given some dexamethasone and Toradol today for the chest wall pain. The expectation is that with a reduction in your cough your symptoms will improve. I have provided a prescription for additional a azithromycin and a second refill on that medicine as well. I have provided some Tessalon Perle which is a cough suppressant. These were E-scribed to [facility] pharmacy in [place]
[2021-11-23 12:44] VITALS: BP 128/62
== END 2021-11-23 12:42 | disposition home or self-care (01) ==
LOC: ED 09:28
DX: J44.9 Chronic obstructive pulmonary disease, unspecified (principal); M94.0 Chondrocostal junction syndrome [Tietze]; Z95.1 Presence of aortocoronary bypass graft; E11.9 Type 2 diabetes mellitus without complications; Z79.84 Long term (current) use of oral hypoglycemic drugs; Z79.82 Long term (current) use of aspirin
CPT/HCPCS: 71046; 96372; 99283; 99284; A9270

== ENCOUNTER 2021-12-26 07:38 | Outpatient (CLI) | payer MEDICARE ==
--- NOTE | 2021-12-26 09:18 | Ultrasound Report ---
PROCEDURE: Abdomen Complete INDICATIONS: ASCITES TECHNIQUE: Real-time scanning was performed of the abdominal and retroperitoneal organs, with image documentatio n. COMPARISON: CT abdomen and pelvis dated 05/18/2019 FINDINGS: Liver: Liver is normal in size and heterogeneously coarse in echotexture. Gallbladder: Status post cholecystectomy Biliary ducts: Intrahepatic bile ducts are non-dilated. Extrahepatic bile duct caliber measures 7 m m. Normal is 6-7 mm or less in diameter, or 10 mm or less post-cholecystectomy. Pancreas: Visualized portions of the pancreas are sonographically normal. Spleen: Spleen is normal in size and homogeneous in echotexture. Kidneys: Kidneys are normal in size and echotexture. Right kidney measures 9.5 cm long; left kidney measures 8.2 cm long. No hydronephrosis or nephrolithiasis. No solid masses. Bilateral renal cyst s are again noted. Largest on the right is seen in the superior pole measuring up to 1.8 cm in size. Largest left renal cyst measures approximately 3.3 cm in size. Aorta: Visualized aorta is normal in caliber at less than 3 cm. Iliacs: Proximal common iliac arteries are normal in caliber at less than 2.5 cm. IVC: Intrahepatic inferior vena cava is patent. Miscellaneous: Scattered ascites noted. IMPRESSION: 1. Findings compatible with hepatic steatosis versus sequela of chronic hepatocellular disease. 2. Redemonstration of bilateral renal cysts. 3. Scattered ascites. Reviewed by: Nando Burkett MD on 12/26/2021 9:16 AM PST Approved by: Nando Burkett MD on 12/26/2021 9:16 AM PST Station ID: [id number]
== END 2021-12-26 07:39 | disposition home or self-care (01) ==
LOC: DI 07:38
PROVIDERS: ATTEND Physician Assistant Medical
DX: R18.8 Other ascites (principal); N28.1 Cyst of kidney, acquired; R93.2 Abnormal findings on diagnostic imaging of liver and biliary tract

== ENCOUNTER 2021-12-28 06:34 | Outpatient (CLI) | payer MEDICARE | END 2021-12-28 06:35 | disposition critical access hospital (66) | LOC: EMS 06:34 | DX: R06.00 Dyspnea, unspecified (principal); R53.83 Other fatigue; R18.8 Other ascites | CPT/HCPCS: A0425; A0427 ==

== ENCOUNTER 2021-12-28 06:50 | Observation (INO) | payer MEDICARE ==
[2021-12-28] MEDS ORDERED: FUROSEMIDE 40 MG/4 ML VIAL IVP STA (07:07)
[2021-12-28] MEDS ORDERED: NITROGLYCERIN SL 0.4 MG TABLET SL STA (07:10)
[2021-12-28] MEDS: NITROGLYCERIN SL 0.4 MG TABLET SL STA (07:11)
[2021-12-28] MEDS ORDERED: NITROGLYCERIN 2% PASTE TOP STA (07:11)
[2021-12-28 07:23] LABS: VBG HCO3 18.7 mmol/L (23-28); VBG PCO2 38.4 mmHg (41-51); VBG PH 7.306 (7.31-7.41); VBG PO2 29.2 mmHg (25-47); VBG TOTAL CO2 19.9 mmol/L (24-29)
[2021-12-28 07:24] LABS: VBG OXYGEN SATURATION 50.2 % (60-80)
[2021-12-28 07:36] LABS: ALBUMIN 3.3 g/dL (3.2-5.5); ALBUMIN/GLOBULIN RATIO 0.8 (1.0-2.2); BILIRUBIN,TOTAL 0.6 mg/dL (0.2-1.0); CALCIUM 9.2 mg/dL (8.5-10.3); CREATININE 1.1 mg/dL (0.4-1.0); POTASSIUM 4.3 mmol/L (3.5-5.0); TOTAL PROTEIN 7.2 g/dL (6.7-8.2)
[2021-12-28 07:37] LABS: BASOPHILS # (AUTO) 0.1 10^3/uL (0.0-0.1); BASOPHILS % (AUTO) 0.6 %; EOSINOPHILS % (AUTO) 0.3 %; HCT - HEMATOCRIT 36.3 % (37.0-47.0); HGB - HEMOGLOBIN 11.2 g/dL (12.0-16.0); LYMPHOCYTES % (AUTO) 9.8 %; MEAN CORPUSCULAR HEMOGLOBIN 28.6 pg (27.0-31.0); MEAN CORPUSCULAR HGB CONC 30.9 g/dL (32.0-36.0); MEAN CORPUSCULAR VOLUME 92.8 fL (81.0-99.0); MEAN PLATELET VOLUME 12.3 fL (7.9-10.8); MONOCYTES # (AUTO) 0.4 10^3/uL (0.0-1.0); MONOCYTES % (AUTO) 4.1 %; NEUTROPHILS # (AUTO) 8.8 10^3/uL (1.5-6.6); NEUTROPHILS % (AUTO) 84.4 %; PLT - PLATELET COUNT 131 10^3/uL (130-450); RED BLOOD COUNT 3.91 10^6/uL (4.20-5.40); RED CELL DISTRIBUTION WIDTH 15.1 % (12.0-15.0); WHITE BLOOD COUNT 10.4 x10^3/uL (4.8-10.8)
[2021-12-28 07:42] LABS: BILIRUBIN,URINE NEGATIVE (NEGATIVE); GLUCOSE, URINE (UA) NEGATIVE (NEGATIVE); KETONES,URINE (UA) NEGATIVE (NEGATIVE); LEUKOCYTE ESTERASE, URINE NEGATIVE (NEGATIVE); NITRITE,URINE NEGATIVE (NEGATIVE); OCCULT BLOOD,URINE NEGATIVE (NEGATIVE); PROTEIN,URINE TRACE mg/dL (NEGATIVE); UROBILINOGEN,URINE 0.2 (NORMAL) E.U./dL (NORMAL)
[2021-12-28] MEDS ORDERED: diltiaZEM INJ 5 MG/ML VIAL IVP STA (07:48)
[2021-12-28 07:57] LABS: BACTERIA,URINE None Seen /HPF (None Seen); CLARITY,URINE CLEAR (CLEAR); RBC,URINE None Seen /HPF (0-5); SQUAMOUS EPITHELIAL CELL,UR RARE Squamous (<= Few); WBC,URINE 0-3 /HPF (0-5)
--- NOTE | 2021-12-28 08:09 | XRAY Report ---
PROCEDURE: Chest 1 View X-Ray INDICATIONS: Chest Pain TECHNIQUE: One view of the chest was acquired. COMPARISON: 11/23/2021, 07/29/2021 FINDINGS: Surgical changes and devices: Right chest wall clips are seen. Post CABG changes are seen. Cholecyst ectomy clips and epigastric clips can be seen. Lungs and pleura: No pleural effusions or pneumothorax. Abnormal interstitial type infiltrates are s een, which are worst inferiorly and centrally. Blunting of the costophrenic angles can be seen. No pn eumothorax is seen. Mediastinum: Mediastinal contours appear mildly enlarged. Heart size is normal. Bones and chest wall: No suspicious bony lesions. Overlying soft tissues appear unremarkable. IMPRESSION: Mild cardiomegaly with interstitial infiltrates and small bilateral pleural effusions. Please correla te with patient examination, history, and laboratory values for underlying congestive heart failure. Postoperative and degenerative changes are seen. Reviewed by: Micah Thompson MD on 12/28/2021 7:08 AM [facility] Approved by: Micah Thompson MD on 12/28/2021 7:08 AM [facility] Station ID: [id number]
--- NOTE | 2021-12-28 08:11 | ED Physician Documentation ---
PD HPI DYSPNEA - Stated complaint Stated Complaint: SOA - Chief complaint Chief Complaint: Abd Pain - History obtained from History obtained from: Patient - Additional information Additional information: The patient is brought to the emergency department by EMS for chief complaint of shortness of breath. She states that she has been struggling with dyspnea ever since having a coronary artery bypass graft surgery back in July. She states that she sees Dr. Llamas for her regular cardiology follow-up and Dr. Amaya at [facility] did her surgery. The patient says she has been thought to possibly have atrial fibrillation, but it's not known for sure. She has had edema of her lower extremities and chronic chest pain since her surgery and states that none of this is changed currently. The patient does note that over the last approximately 12 hours, her shortness of breath got much worse. She denies any nausea or vomiting. Chest pain is chronic and nonradiating. No fevers, chills, or cough. The patient was found to have oxygen saturation around 90% on scene, but severely labored respirations. She was placed on supplemental oxygen in route and given an nebulizer treatment, she does have a history of COPD also. This provided minimal relief of symptoms. No other complaints at this time. Review of Systems Ten Systems: 10 systems reviewed and negative Constitutional: reports: Reviewed and negative Eyes: reports: Reviewed and negative Ears: reports: Reviewed and negative Nose: reports: Reviewed and negative Throat: reports: Reviewed and negative Cardiac: reports: Chest pain / pressure (chronic) Respiratory: reports: Dyspnea GI: reports: Reviewed and negative : reports: Reviewed and negative Skin: reports: Reviewed and negative Musculoskeletal: reports: Extremity swelling (chronic) Neurologic: reports: Reviewed and negative Psychiatric: reports: Reviewed and negative Endocrine: reports: Reviewed and negative Immunocompromised: reports: Reviewed and negative PD PAST MEDICAL HISTORY - Past Medical History Past Medical History: Yes Cardiovascular: None Respiratory: None Endocrine/Autoimmune: Type 2 diabetes Musculoskeletal: Rheumatoid arthritis, Gout - Past Surgical History Past Surgical History: Yes General: Cholecystectomy, 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 - Present Medications Home Medications: Ambulatory Orders Medication Instructions Recorded Confirmed Aspirin 162 mg PO DAILY 05/25/14 12/28/21 Calcium Carb/Vitamin D3/Vit K1 600 mg PO BID 05/25/14 12/28/21 [Calcium + D Soft Chewable Tab] Folic Acid 1 mg PO DAILY 05/25/14 12/28/21 metFORMIN [Glucophage] 1,000 mg PO BID 05/25/14 12/28/21 Ascorbic Acid [Vitamin C with Vivi 1 tab PO DAILY 08/29/18 12/28/21 Hips] Iron,Carbonyl [Iron Chews] 65 mg PO DAILY 08/29/18 12/28/21 Tamoxifen [Nolvadex] 20 mg PO DAILY 03/27/19 12/28/21 Glimepiride [Amaryl] 2 mg PO DAILY 07/29/21 12/28/21 Leflunomide [Arava] 20 mg PO DAILY 07/29/21 12/28/21 Benzonatate [Tessalon] 100 - 200 mg PO TID PRN #30 cap 11/23/21 12/28/21 - Allergies Allergies/Adverse Reactions: Allergies Allergy/AdvReac Type Severity Reaction Status Date / Time lisinopril Allergy Edema Verified 12/28/21 07:02 Penicillins AdvReac Hives Verified 12/28/21 07:02 Sulfa (Sulfonamide AdvReac Rash Verified 12/28/21 07:02 Antibiotics) venom-honey bee AdvReac Edema Verified 12/28/21 07:02 [bee venom (honey bee)] - Social History Does the pt smoke?: No Smoking Status: Never smoker Does the pt drink ETOH?: No Does the pt have substance abuse?: No - Immunizations Immunizations are current?: Yes - POLST Patient has POLST: No PD ED PE NORMAL - Vitals Vital signs reviewed: Yes - General General: Alert and oriented X 3, Other (Moderate respiratory distress) - HEENT HEENT: Atraumatic, PERRL, EOMI, Moist mucous membranes - Neck Neck: Supple, no meningeal sign - Cardiac Cardiac: No murmur, Strong equal pulses, Other (Tachycardic rate, regular rhythm) - Respiratory Respiratory: Other (Moderate respiratory distress on BiPAP. Patient is able to speak in phrases or short sentences, but has labored respirations. Rales bilaterally.) - Abdomen Abdomen: Soft, Non tender, Non distended - Derm Derm: Normal color, Warm and dry, No rash - Extremities Extremities: No deformity, Other (1+ pitting edema bilaterally) - Neuro Neuro: chairman and ceo 2-12 intact, Other (Grossly oriented and grossly intact.) - Psych Psych: Normal mood, Normal affect Results - Vitals Vitals: Vital Signs - 24 hr 12/28/21 12/28/21 12/28/21 08:45 09:15 09:30 Heart Rate 144 H 137 H 132 H Respiratory 23 24 24 Rate Blood Pressure 121/74 127/73 116/72 O2 Saturation 96 98 97 12/28/21 12/28/21 09:34 10:00 Heart Rate 130 H 136 H Respiratory 24 Rate Blood Pressure 111/75 O2 Saturation 98 Oxygen O2 Source BIPAP Oxygen Flow Rate 4 - Labs Labs: Laboratory Tests 12/28/21 12/28/21 12/28/21 07:01 07:05 07:05 WBC 10.4 RBC 3.91 L Hgb 11.2 L Hct 36.3 L MCV 92.8 MCH 28.6 MCHC 30.9 L RDW 15.1 H Plt Count 131 MPV 12.3 H Neut # (Auto) 8.8 H Lymph # (Auto) 1.0 L Payne # (Auto) 0.4 Eos # (Auto) 0.0 Baso # (Auto) 0.1 Absolute Nucleated RBC 0.00 Nucleated RBC % 0.0 D-Dimer VBG pH VBG pCO2 VBG pO2 VBG HCO3 VBG Total CO2 VBG O2 Saturation VBG Base Excess Sodium 140 Potassium 4.3 Chloride 106 Carbon Dioxide 22 Anion Gap 12.0 BUN 27 H Creatinine 1.1 H Estimated GFR (MDRD) 48 L Glucose 216 H Calcium 9.2 Total Bilirubin 0.6 AST 43 H ALT 43 Alkaline Phosphatase 84 Troponin I High Sens B-Natriuretic Peptide Total Protein 7.2 Albumin 3.3 Globulin 3.9 Albumin/Globulin Ratio 0.8 L Lipase 41 Urine Color Urine Clarity Urine pH Ur Specific [place] Urine Protein Urine Glucose (UA) Urine Ketones Urine Occult Blood Urine Nitrite Urine Bilirubin Urine Urobilinogen Ur Leukocyte Esterase Urine RBC Urine WBC Ur Squamous Epith Cells Urine Bacteria Urine Culture Comments Nasal Adenovirus (PCR) NOT DETECTED Nasal B. parapertussis DNA (PCR) NOT DETECTED Nasal Coronavir 229E PCR NOT DETECTED Nasal Coronavir HKU1 PCR NOT DETECTED Nasal Coronavir NL63 PCR NOT DETECTED Nasal Coronavir OC43 PCR NOT DETECTED Nasal Enterovir/Rhinovir PCR NOT DETECTED Nasal Influenza B PCR NOT DETECTED Nasal Influenza A PCR NOT DETECTED Nasal Parainfluen 1 PCR NOT DETECTED Nasal Parainfluen 2 PCR NOT DETECTED Nasal Parainfluen 3 PCR NOT DETECTED Nasal Parainfluen 4 PCR NOT DETECTED Nasal RSV (PCR) NOT DETECTED Nasal B.pertussis DNA PCR NOT DETECTED Nasal C.pneumoniae (PCR) NOT DETECTED Matt Human Metapneumo PCR NOT DETECTED Nasal M.pneumoniae (PCR) NOT DETECTED Nasal SARS-CoV-2 (PCR) NOT DETECTED 12/28/21 12/28/21 12/28/21 07:05 07:05 07:05 WBC RBC Hgb Hct MCV MCH MCHC RDW Plt Count MPV Neut # (Auto) Lymph # (Auto) Payne # (Auto) Eos # (Auto) Baso # (Auto) Absolute Nucleated RBC Nucleated RBC % D-Dimer VBG pH 7.306 L VBG pCO2 38.4 L VBG pO2 29.2 VBG HCO3 18.7 L VBG Total CO2 19.9 L VBG O2 Saturation 50.2 L VBG Base Excess -7.0 L Sodium Potassium Chloride Carbon Dioxide Anion Gap BUN Creatinine Estimated GFR (MDRD) Glucose Calcium Total Bilirubin AST ALT Alkaline Phosphatase Troponin I High Sens 57.6 H* B-Natriuretic Peptide 892 H Total Protein Albumin Globulin Albumin/Globulin Ratio Lipase Urine Color Urine Clarity Urine pH Ur Specific [place] Urine Protein Urine Glucose (UA) Urine Ketones Urine Occult Blood Urine Nitrite Urine Bilirubin Urine Urobilinogen Ur Leukocyte Esterase Urine RBC Urine WBC Ur Squamous Epith Cells Urine Bacteria Urine Culture Comments Nasal Adenovirus (PCR) Nasal B. parapertussis DNA (PCR) Nasal Coronavir 229E PCR Nasal Coronavir HKU1 PCR Nasal Coronavir NL63 PCR Nasal Coronavir OC43 PCR Nasal Enterovir/Rhinovir PCR Nasal Influenza B PCR Nasal Influenza A PCR Nasal Parainfluen 1 PCR Nasal Parainfluen 2 PCR Nasal Parainfluen 3 PCR Nasal Parainfluen 4 PCR Nasal RSV (PCR) Nasal B.pertussis DNA PCR Nasal C.pneumoniae (PCR) Matt Human Metapneumo PCR Nasal M.pneumoniae (PCR) Nasal SARS-CoV-2 (PCR) 12/28/21 12/28/21 07:05 07:20 WBC RBC Hgb Hct MCV MCH MCHC RDW Plt Count MPV Neut # (Auto) Lymph # (Auto) Payne # (Auto) Eos # (Auto) Baso # (Auto) Absolute Nucleated RBC Nucleated RBC % D-Dimer > 1050.0 H VBG pH VBG pCO2 VBG pO2 VBG HCO3 VBG Total CO2 VBG O2 Saturation VBG Base Excess Sodium Potassium Chloride Carbon Dioxide Anion Gap BUN Creatinine Estimated GFR (MDRD) Glucose Calcium Total Bilirubin AST ALT Alkaline Phosphatase Troponin I High Sens B-Natriuretic Peptide Total Protein Albumin Globulin Albumin/Globulin Ratio Lipase Urine Color YELLOW Urine Clarity CLEAR Urine pH 5.0 Ur Specific [place] 1.025 Urine Protein TRACE Urine Glucose (UA) NEGATIVE Urine Ketones NEGATIVE Urine Occult Blood NEGATIVE Urine Nitrite NEGATIVE Urine Bilirubin NEGATIVE Urine Urobilinogen 0.2 (NORMAL) Ur Leukocyte Esterase NEGATIVE Urine RBC None Seen Urine WBC 0-3 Ur Squamous Epith Cells RARE Squamous Urine Bacteria None Seen Urine Culture Comments NOT INDICATED Nasal Adenovirus (PCR) Nasal B. parapertussis DNA (PCR) Nasal Coronavir 229E PCR Nasal Coronavir HKU1 PCR Nasal Coronavir NL63 PCR Nasal Coronavir OC43 PCR Nasal Enterovir/Rhinovir PCR Nasal Influenza B PCR Nasal Influenza A PCR Nasal Parainfluen 1 PCR Nasal Parainfluen 2 PCR Nasal Parainfluen 3 PCR Nasal Parainfluen 4 PCR Nasal RSV (PCR) Nasal B.pertussis DNA PCR Nasal C.pneumoniae (PCR) Matt Human Metapneumo PCR Nasal M.pneumoniae (PCR) Nasal SARS-CoV-2 (PCR) PD MEDICAL DECISION MAKING - ED course Complexity details: reviewed old records, reviewed results, re-evaluated patient, considered differential, d/w patient ED course: The patient was initially evaluated upon arrival by Dr. Zarate, who is on duty when the patient arrived. However, shortly after the patient's arrival, I did arrive for my shift and took over patient's care. But this time, she was already on BiPAP and reporting a little improvement. The patient had been given a single sublingual nitroglycerin, and the second 1 was ordered as well as an inch of Nitropaste. Her blood pressure had been quite high on arrival, but did begin to improve after this. 80 mg of Lasix IV was also ordered and Hurley cath eter was placed. Chest x-ray showed pulmonary edema bilaterally. The patient's heart rate was sometimes regular but often irregular, and given the artifact on her EKG and monitor from the BiPAP and the work of breathing, I could not tell if the patient was in atrial fibrillation or not. She was given a dose of 20 mg of Cardizem IV, and this improved her heart rate only minimally, so I suspected sinus tachycardia. The patient's oxygen saturation remained quite good on the BiPAP, and was consistently in the high 90s. As such, the FiO2 was weaned down to 30%. The patient initially did not have much response to the Lasix and only put out 100 cc of urine in the first approximately 45 minutes to an hour after receiving the Lasix. Her heart rate remained in the 130s at that time. However, patient did begin to respond and ultimately, put out over a liter of urine in the emergency department. She was found to have a BNP of 798. Her troponin was 57. The patient reported feeling quite a bit better after some diuresis. I spoke with both Dr. Roe, who was covering call for Dr. Llamas's group and with Dr. Amaya, the patient's cardiothoracic surgeon, briefly. Dr. Amaya did not have a role at this time and suggested that hospitalist and post tensioning ironworker helper coordinate on care. Guera did then page Dr. Perez, who is on-call for cardiology at [facility]. Both Dr. Perez and Dr. Roe any felt that the patient's troponin was most likely elevated from CHF and not from an acute coronary syndrome. Both were able to review records that they have not found the patient had had an echo showing EF of between 30 and 40% back in the fall, after her bypass surgery. The left bundle branch block was existing after the bypass. suggested that rather than Cardizem, a beta-lauren could be used to try to slow the patient's heart rate if it remains persistently elevated. According to the records, she has never been in atrial fibrillation and is only showing sinus rhythm with some intermittent ectopy. Dr. Perez did recommend that if the beta-lauren did not work to slow the heart rate down, we could try digoxin or amiodarone. He also stated that depending on the patient's response to the current set up with spot dosing of Lasix and with the nitroglycerin paste, the patient could also be a candidate for short-term IV drip of nitroglycerin at 10 mcg per minute. He did state that he did not think that the patient would be likely to be catheterized during this admission, and as such, The patient could stay here. I spoke with Dr. Gilliam and related all of the above to her. She did agree to admit the patient to her service but requested that if possible we could get a CT angiogram to evaluate for the possibility of pulmonary embolism. This was done and found to be negative for PE. The patient on reevaluation was actually feeling a lot better. She was trialed on supplemental oxygen with nasal cannula just prior to transfer to the inpatient lemos and actually seemed to be doing quite well on this. - Critical Care Time(min): 75 Comments: Critical care time was necessary, due to high probability of imminent decline and , secondary to congestive heart failure exacerbation, hypertensive emergency, extreme tachycardia and respiratory failure. Time Includes: Direct patient care, Review records, Reassess patient, Document care, Coordinate care, Medical consult, See progress note Data interpretation: Labs, Pulse ox, ABG, CXR, Prior EKG, Cardiac output, See progress note Procedures included in critical care time: Ventilator mgmt, See progress note Departure - Departure Disposition: ED Place in Observation Clinical Impression: COPD exacerbation, Hypertensive emergency Acute exacerbation of CHF (congestive heart failure) Qualifiers: Heart failure type: unspecified Qualified Code(s): I50.9 - Heart failure, unspecified Respiratory failure Qualifiers: Chronicity: acute Respiratory failure complication: hypoxia Qualified Code(s): J96.01 - Acute respiratory failure with hypoxia Condition: Critical Discharge Date/Time: 12/28/21 10:45
[2021-12-28 09:36] LABS: CORONAVIRUS 229E-RESP PCR NOT DETECTED; CORONAVIRUS HKU1-RESP PCR NOT DETECTED; CORONAVIRUS NL63-RESP PCR NOT DETECTED; CORONAVIRUS OC43-RESP PCR NOT DETECTED; HUMAN METAPNEUMOVIRUS NOT DETECTED; INFLUENZA A- RESP PCR PANEL NOT DETECTED; RHINOVIRUS/ENTEROVIRUS NOT DETECTED; SARS-CoV-2 -RESP PCR PANEL NOT DETECTED
[2021-12-28 09:37] LABS: B. PARAPERTUSSIS- RESP PCR PAN NOT DETECTED; B. PERTUSSIS- RESP PCR PANEL NOT DETECTED; C. PNEUMONIAE- RESP PCR PANEL NOT DETECTED; INFLUENZA B - RESP PCR PANEL NOT DETECTED; M. PNEUMONIAE- RESP PCR PANEL NOT DETECTED; PARAINFLUENZA VIRUS 1 NOT DETECTED; PARAINFLUENZA VIRUS 2 NOT DETECTED; PARAINFLUENZA VIRUS 3 NOT DETECTED; PARAINFLUENZA VIRUS 4 NOT DETECTED; RSV- RESP PCR PANEL NOT DETECTED
[2021-12-28] MEDS ORDERED: ACETAMINOPHEN 325 MG TABLET PO PRN (10:10)
[2021-12-28] MEDS ORDERED: ONDANSETRON ODT 4 MG TABLET TL PRN (10:10)
[2021-12-28] MEDS ORDERED: SODIUM CHLORIDE FLUSH 0.9% 10 ML SYRINGE IVP PRN (10:10)
[2021-12-28] MEDS ORDERED: ONDANSETRON 4 MG/2 ML VIAL IVP PRN (10:10)
[2021-12-28] MEDS ORDERED: oxyCODONE 5 MG TABLET PO PRN (10:10)
[2021-12-28] MEDS ORDERED: ALBUTEROL NEB 2.5 MG/3 ML INH PRN (10:16)
[2021-12-28] MEDS ORDERED: IOVERSOL 320 100 ML VIAL IVP ONE ×2 (10:35→11:34)
[2021-12-28] MEDS ORDERED: ENOXAPARIN 80 MG/0.8 ML SYRINGE SUBQ SCH (11:00)
[2021-12-28] MEDS ORDERED: CHLORHEXIDINE GLUCONATE 15 ML UDC PO SCH (11:00)
--- NOTE | 2021-12-28 11:39 | CT Report ---
PROCEDURE: ANGIO CHEST W/WO INDICATIONS: dyspnea, cancer, tachycardia CONTRAST: IV CONTRAST: Optiray 320 ml: 80 PO CONTRAST: *NO PO CONTRAST TECHNIQUE: After the administration of intravenous contrast, 2 mm axial images were acquired from the pulmonary apices to the posterior costophrenic angles during the arterial phase. In addition, 1 mm lung kernel and 5 mm soft tissue kernel reconstructions were performed. 3-dimensional coronal oblique maximum int ensity projection (MIP) reformats, 8 mm axial MIP, and 5 mm coronal and sagittal MPR reformats were t hen performed through the thorax. For radiation dose reduction, the following was used: automated exp osure control, adjustment of mA and/or kV according to patient size. COMPARISON: Correlation is made with chest radiograph, 12/28/2021. Correlation is also made with overl apping portions of the abdomen and pelvis CT, 05/18/2019. FINDINGS: Image quality: Motion artifact is noted. Pulmonary arteries: Pulmonary arteries are normal in size, and demonstrate no intraluminal filling d efects to suggest central pulmonary embolism. Lungs and pleura: Trace bilateral pleural effusions are seen. Mild interstitial prominence can be see n, which is worst inferiorly. No pneumothorax is seen. Mediastinum: Post CABG changes are seen. Hear t size is mildly enlarged, without pericardial effusion. No mediastinal or hilar adenopathy. Thorac ic aorta is normal in caliber and enhancement. Atherosclerotic calcification is seen. Esophagus is n ormal in caliber. There is a small hiatal hernia. Bones and chest wall: No suspicious bony lesions. Ribs and thoracic spine appear intact throughout. No axillary or supraclavicular adenopathy. The thyroid is normal in size and there are no incident al findings. Right inferior breast clips are seen. Abdomen: There is moderate ascites seen involving the upper abdomen. The visualized portions of the u pper abdominal structures are otherwise within normal limits. IMPRESSION: Motion limited study demonstrating no findings of large or central pulmonary emboli. Trace bilateral pleural effusions and interstitial prominence. There is also mild cardiomegaly. Pleas e correlate with patient examination, history, and laboratory values for underlying congestive heart failure. Moderate ascites, which has developed since 2019. Incidental note is made of: Post CABG changes Right breast clips Small hiatal hernia Reviewed by: Micah Thompson MD on 12/28/2021 10:37 AM [facility] Approved by: Micah Thompson MD on 12/28/2021 10:37 AM [facility] Station ID: [id number]
[2021-12-28] MEDS: INSULIN ASPART 300 UNIT/3 ML PEN SUBQ SCH ×2 (11:45→18:16)
[2021-12-28] MEDS: methylPREDNISolone SUCCINATE 40 MG/ML VIAL IVP SCH ×2 (12:28→17:08)
--- NOTE | 2021-12-28 12:49 | PHARMACY PROGRESS NOTE ---
- Best Possible Medication History Admit Date and Time: 12/28/21 1010 Processed by: Nursing Medication History completed: Yes Patient Interview: Completed Secondary Source(s): Pharmacy records, Insurance records As the person ultimately responsible for medication therapy, providers are able to order a medication from an existing home medication list in [facility] via the "Reconcile Routine" prior to Confirmation of that medication by youth accommodation support worker. Such practice is discouraged except when the physician, in their clinical judgment, deems that a medical need exists for a medication without regard to previous use.
--- NOTE | 2021-12-28 12:53 | HISTORY & PHYSICAL EXAMINATION ---
Chief Complaint - Chief Complaint Chief Complaint: Dyspnea History of Present Illness - Admitted From Admitted From:: Patient - History Obtained From Records Reviewed: [facility] History obtained from: Patient Exam Limitations: None - History of Present Illness HPI Comment/Other: 76 year old female with a history of COPD and CHF presents for evaluation of shortness of breath which she reports that she has been struggling with since having a triple coronary bypass graft back in July. She reports that it has been getting progressively worse over the past week and then more acutely over the past 12 hours. She reports that she has had a mild cough for the past few days and tried cough medicine for her dyspnea with no relief. She denies sore throat, runny nose or fever. She currently denies chest pain but reports that she has had non-radiating chest pain and off since the surgery. Denies extremity or jaw pain. She reports some nausea and bloating but no vomiting. Upon arrival in the ED, patient was on supplemental O2 placed by EMS. Heart rate 158, Respirations 21, blood pressure 157/105. She continued to desaturate and was place on BiPAP. She then received nitroglycerin, an inch of Nitropaste, 80 mg of Lasix and 20 mg of Cardizem IV. On BiPAP her O2 was consistent in the upper 90s so she was weaned down to 30%. By the time she came to the floor she had been taken on off BiPAP and placed on high flow O2. Negative respiratory pathogen panel, including COVID. No UTI on UA. BNP 892. D- dimer 1004. Troponin elevated at 57.6. Repeat Troponin 3 hours later 510.9. Lactic acid 2.8. X-ray shows cardiomegaly and mild infiltrates. CTA shows ascites in abdomen. No PE. Doppler ultrasound shows no DVT. 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 Social History Notes: Lives at home with carlos. 2 children living in the [place] area. - Substance History Use: Uses substance without health or social issues: Tobacco (Reports that she smoked one pack a day before quitting 20-30 years ago) Dependence: Experiences withdrawal or developed tolerances: NONE Tobacco Details: Cigarettes - POLST Patient has POLST: No POLST Status: DNR Meds/Allgy - Home Medications Home Medications: Ambulatory Orders Medication Instructions Recorded Confirmed Aspirin 162 mg PO DAILY 05/25/14 12/28/21 Calcium Carb/Vitamin D3/Vit K1 600 mg PO BID 05/25/14 12/28/21 [Calcium + D Soft Chewable Tab] Folic Acid 1 mg PO DAILY 05/25/14 12/28/21 metFORMIN [Glucophage] 1,000 mg PO BID 05/25/14 12/28/21 Ascorbic Acid [Vitamin C with Vivi 1 tab PO DAILY 08/29/18 12/28/21 Hips] Iron,Carbonyl [Iron Chews] 65 mg PO DAILY 08/29/18 12/28/21 Tamoxifen [Nolvadex] 20 mg PO DAILY 03/27/19 12/28/21 Glimepiride [Amaryl] 2 mg PO DAILY 07/29/21 12/28/21 Leflunomide [Arava] 20 mg PO DAILY 07/29/21 12/28/21 Benzonatate [Tessalon] 100 - 200 mg PO TID PRN #30 cap 11/23/21 12/28/21 - Allergies Allergies/Adverse Reactions: Allergies Allergy/AdvReac Type Severity Reaction Status Date / Time lisinopril Allergy Edema Verified 12/28/21 07:02 Penicillins AdvReac Hives Verified 12/28/21 07:02 Sulfa (Sulfonamide AdvReac Rash Verified 12/28/21 07:02 Antibiotics) venom-honey bee AdvReac Edema Verified 12/28/21 07:02 [bee venom (honey bee)] Review of Systems - Constitutional Constitutional: denies: Fatigue, Fever, Chills, Malaise, Weakness, Diaphoresis - Eyes Eyes: denies: Pain, Blurred vision - Ears, Nose & Throat Ears, Nose & Throat: denies: Nasal congestion, Sore throat - Cardiovascular Cariovascular: reports: Chest pain (chronic), Edema. denies: Syncope - Respiratory Respiratory: reports: Cough, SOB at rest, SOB with exertion. denies: Hemoptysis, Pleuritic pain - Gastrointestinal Gastrointestinal: reports: Abdominal pain, Abdominal distention, Nausea, Bloating. denies: Constipation, Diarrhea, Change in bowel habits, Rectal bleeding, Black stools, Bloody stools, Vomiting, Reflux/heartburn - Genitourinary Genitourinary: denies: Dysuria, Frequency, Urgency, Hematuria, Incontinence - Musculoskeletal Musculoskeletal: denies: Muscle pain, Back pain - Integumentary Integumentary: denies: Rash - Neurological Neurological: denies: General weakness, Focal weakness, Headache, Dizziness, Numbness Exam - Vital Signs Reviewed Vital Signs: Yes Vital Signs: Vital Signs x48h Temp Pulse Pulse Resp BP BP Pulse Ox 12/28/21 11:23 37.5 C 132 H 30 H 122/68 98 12/28/21 10:30 122 H 25 H 110/76 99 12/28/21 10:00 136 H 24 111/75 98 12/28/21 09:34 130 H 12/28/21 09:30 132 H 24 116/72 97 12/28/21 09:15 137 H 24 127/73 98 12/28/21 08:45 144 H 23 121/74 96 12/28/21 08:00 130 H 25 H 126/81 H 99 12/28/21 07:52 120 H 12/28/21 07:30 152 H 24 132/84 H 96 12/28/21 07:19 155 H 36 H 153/97 H 96 12/28/21 07:09 157 H 35 H 164/106 H 96 12/28/21 06:50 36.9 C 158 H 21 157/105 H 94 - Physical Exam General Appearance: positive: Alert, Mild distress Eyes Bilateral: positive: Normal inspection, PERRL, EOMI ENT: positive: ENT inspection nml, No signs of dehydration Neck: positive: Nml inspection, No JVD, Trachea midline. negative: Lymphadenopathy (R), Lymphadenopathy (L), Stiff neck Respiratory: positive: Chest non-tender, Wheezes (occasional wheezes in upper lobes), Rales (bilateral inspiratory crackles in lower lungs) Cardiovascular: positive: Regular rate & rhythm, No murmur, Tachycardia, Gallop/S3 Peripheral Pulses: positive: 2+ Abdomen: positive: Non-tender, Nml bowel sounds Back: positive: Nml inspection Skin: positive: Color nml Extremities: positive: Non-tender, Full ROM, Pedal edema (mild) Neurologic/Psychiatric: positive: Oriented x3, CN's nml (2-12), Motor nml, Sensation nml, Mood/affect nml Sepsis Event Note (H) - Evaluation Current Stage of Sepsis: Ruled out Conclusion/Plan - Problem List (1) Acute exacerbation of CHF (congestive heart failure) Conclusion/Plan: Patient is currently experiencing fluid overload. She has chronic CHF but it is unclear what caused the acute exacerbation. Possible NE; elevated Troponin at 510.9 with probable anterior septal infarct on EKG. Unclear if this is acute. Possible issue with bypass graft as the source. Also considered PE/DVT due to elevated D-dimer and history of tamoxifen use. CTA of chest and Doppler ultrasound shows no clots. Considered acute respiratory infection due to recent cough but respiratory panel and COVID test negative. Patient also had no fever and normal WBC. She denies recent changes in diet or increase in sodium intake. Plan: Repeat Troponin Give Lasix for fluid overload, monitor fluid output via nagy Give aspirin and atorvastatin for cardiac issues Continue 4 LO2 by nasal cannula Continue tele monitoring Qualifiers: Heart failure type: unspecified Qualified Code(s): I50.9 - Heart failure, unspecified (2) COPD exacerbation Conclusion/Plan: Patient has chronic COPD due to a history of smoking. An exacerbation could be contributing to her dyspnea. Plan: Given Solu-Medrol Albuterol PRN Continue supplemental O2 by nasal cannula (3) Tachycardia Conclusion/Plan: Heart rate 150s upon admission. Patient given diltiazem, rate reduced to 120s- 130s. Continue tele monitoring (4) Breast cancer Conclusion/Plan: Patient is being managed by an oncologist outpatient with Tamoxifen Qualifiers: Patient sex: female (5) Diabetes mellitus Conclusion/Plan: Patient is on metformin and glimepiride at home. No metformin during admission due to risk of lactic acidosis. 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: without longterm use Diabetes mellitus complication status: without complication Qualified Code(s): E11.9 - Type 2 diabetes mellitus without complications (6) Rheumatoid arthritis Conclusion/Plan: Continue usual Arava - Lab Results Fish Bones: 12/28/21 07:05 12/28/21 07:05 - Diagnostic Imaging Results Diagnostic Imaging Results: positive: See rad report Diagnostic Imaging Results Comments: Cardiomegaly and pulmonary infiltrates on X-ray Acites in abdomen on CT No PE or DVT on CT or ultrasound - EKG Results EKG Interpreted Independently: Yes EKG Comparison: Changed from prior EKG (Sinus Tachycardia Premature atrial complex Probably anteroseptal infarct, bundle branch block present, unable to interpret ST changes)
--- NOTE | 2021-12-28 13:11 | Ultrasound Report ---
PROCEDURE: Duplex Ext Veins Bilateral INDICATIONS: Xuan Gilliam TECHNIQUE: Real-time imaging, as well as color and pulse Doppler interrogation, were performed of the deep veins of both legs from the inguinal ligament to the popliteal fossa. COMPARISON: None FINDINGS: The deep veins are normally compressible, and free of intraluminal thrombus. Color and pu lse Doppler demonstrate normal phasic intravascular flow. There is normal augmentation response to d istal compression maneuver. IMPRESSION: No findings of deep venous thrombosis are seen. Reviewed by: Micah Thompson MD on 12/28/2021 12:[address] [facility] Approved by: Micah Thompson MD on 12/28/2021 12:[address] [facility] Station ID: [id number]
[2021-12-28] MEDS: IPRATROPIUM/ALBUTEROL 3 ML NEB INH SCH ×2 (13:26→18:57)
[2021-12-28] MEDS ORDERED: ATORVASTATIN 40 MG TABLET PO STA (13:42)
[2021-12-28] MEDS ORDERED: METOPROLOL TARTRATE 50 MG TABLET PO SCH (16:04)
[2021-12-28] MEDS ORDERED: ASPIRIN 325 MG TABLET PO ONE (17:00)
[2021-12-28] MEDS ORDERED: SODIUM CHLORIDE FLUSH 0.9% 10 ML SYRINGE IVP SCH (17:00)
--- NOTE | 2021-12-28 17:34 | DISCHARGE SUMMARY ---
"Discharge Summary Admit Date: 12/28/21 Discharge Date: 12/28/21 Discharging Provider: Xuan Gilliam MD Primary Care Provider: Ruthie Resendiz MD Code Status: Do Not Attempt Resuscitation Condition at Discharge: Critical Discharge Disposition: 02 Transfer Acute Care Hosp Discharge Facility Name: [facility] - DIAGNOSES Discharge Diagnoses with Status of Each Condition: 1. 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 NSTEMI 3. Acute respiratory failure with hypoxia 4. Sinus tachycardia 5. Stage I breast cancer on tamoxifen 6. Type 2 diabetes mellitus, without complication, without long-term use of insulin 7. Rheumatoid arthritis on Arava 8. Acute on chronic kidney insufficiency. Baseline creatinine 0.9, currently 1.1. 9. Hypotension - HPI History of Present Illness: 76 year old female with a history of COPD and CHF presents for evaluation of shortness of breath which she reports that she has been struggling with since having a triple coronary bypass graft back in July. She reports that it has been getting progressively worse over the past week and then more acutely over the past 12 hours. She reports that she has had a mild cough for the past few days and tried cough medicine for her dyspnea with no relief. She denies sore throat, runny nose or fever. She currently denies chest pain but reports that she has had non-radiating chest pain and off since the surgery. Denies extremity or jaw pain. She reports some nausea and bloating but no vomiting. Upon arrival in the ED, patient was on supplemental O2 placed by EMS. Heart rate 158, Respirations 21, blood pressure 157/105. She continued to desaturate and was place on BiPAP. She then received nitroglycerin, an inch of Nitropaste, 80 mg of Lasix and 20 mg of Cardizem IV. On BiPAP her O2 was consistent in the upper 90s so she was weaned down to 30%. By the time she came to the floor she had been taken on off BiPAP and placed on high flow O2. Negative respiratory pathogen panel, including COVID. No UTI on UA. BNP 892. D- dimer 1004. Troponin elevated at 57.6. Repeat Troponin 3 hours later 510.9. Lactic acid 2.8. X-ray shows cardiomegaly and mild infiltrates. CTA shows ascites in abdomen. No PE. Doppler ultrasound shows no DVT. - CONSULTS | PROCEDURES Procedures: 1. Chest x-ray with changes of congestive heart failure, no pneumonia 2. Chest/thorax CT angiogram without pulmonary emboli. Trace bilateral pleural effusions. Moderate ascites in the upper abdomen. 3. Venous Dopplers negative for DVTs - HOSPITAL COURSE Hospital Course: When we admitted her, we were looking at sudden severe worsening of shortness of breath over a few days superimposed on a chronic shortness of breath and dyspnea exertion that it been going on since her bypass surgery in July 2021. In the immediate postoperative period, Her echo showed an ejection fraction of 30%. By the time of discharge she was up to 40% ejection fraction. The emergency room provider had already spoken to the on-call parlor chaperone for her group and they felt that she could be safely managed here as a simple acute on chronic congestive heart failure. The case was also discussed, very briefly, with the cardiovascular on surgeon on-call at [facility]. With no specific complaints of angina, which took her to the hospital today in the first place, she is just been laying low. Not feeling well. Tired. Fatigued. There is no angina with this current episode of shortness of breath. Sometimes some edema and sometime not. Initial EKG in the emergency room is with left bundle branch block. This renders it uninterpretable for ischemia. This was seen in the postop period at [facility]. Troponin #1 was 57.6. The next troponin was 510.9. A third troponin is 1086.4. Her blood pressure has dropped to 86/52. We have taken off her nitroglycerin. Current management is Lovenox 70 subcu twice daily, Lipitor 80 mg once, aspirin 325 mg once, and Lopressor 50 mg p.o. twice daily will be s tarted for her tachycardia. She continues to have tachycardia at 109-113. It is sinus. CTA is negative for PE. No DVT on US. Incidental finding of probable cirrhosis from fatty liver is seen on CT and scattered ascites. She states she doesn't drink and no hx of alcohol abuse. I re-spoke to her parlor chaperone wagon driller group. That is [facility] cardiology. Dr. Roe feels the patient should be transferred to [place] for repeat angiogram. However I called [facility] and they have no beds. I then called [facility] and they have no beds. I have spoken to [facility]. To expedite matters I also called [facility] since that is where she had her bypass surgery. No bed. The patient was accepted by [facility]. RICHELLE Smith, accepted the patient. I let her know that the parlor chaperone did not feel that the patient needed to go to the [facility] tonight. She can be medically managed until she was stable enough to go to the [facility]. I have explained this to the patient. She is understandably disappointed that she has to leave the [facility] and go somewhere else. I have also updated her . At discharge the patient is a very thin, cachectic appearing female who looks older than stated age. Looks very exhausted, occasionally tachypneic up to 25. She has been diuresed with Lasix. Pulse is 113. Blood pressure is 92/49. She is 96% saturated on 4 L. Neck veins are slightly distended. Lungs are quiet but no wheezing. Earlier in the day she was wheezing in her upper lobes. Earlier in the day she also had rales. She has a regular rate and rhythm. Abdomen is soft, nontender, normal bowels. She had mild pedal edema on admission that seems to have resolved over the last few hours with her urine output. Although she is quite fatigued, and it is an effort for her to speak, she is alert, oriented, no focal deficits. - ALLERGIES Allergies/Adverse Reactions: Allergies Allergy/AdvReac Type Severity Reaction Status Date / Time lisinopril Allergy Edema Verified 12/28/21 07:02 Penicillins AdvReac Hives Verified 12/28/21 07:02 Sulfa (Sulfonamide AdvReac Rash Verified 12/28/21 07:02 Antibiotics) venom-honey bee AdvReac Edema Verified 12/28/21 07:02 [bee venom (honey bee)] - MEDICATIONS Home Medications: Ambulatory Orders Medication Instructions Recorded Confirmed Aspirin 162 mg PO DAILY 05/25/14 12/28/21 Calcium Carb/Vitamin D3/Vit K1 600 mg PO BID 05/25/14 12/28/21 [Calcium + D Soft Chewable Tab] Folic Acid 1 mg PO DAILY 05/25/14 12/28/21 metFORMIN [Glucophage] 1,000 mg PO BID 05/25/14 12/28/21 Ascorbic Acid [Vitamin C with Vivi 1 tab PO DAILY 08/29/18 12/28/21 Hips] Iron,Carbonyl [Iron Chews] 65 mg PO DAILY 08/29/18 12/28/21 Tamoxifen [Nolvadex] 20 mg PO DAILY 03/27/19 12/28/21 Glimepiride [Amaryl] 2 mg PO DAILY 07/29/21 12/28/21 Leflunomide [Arava] 20 mg PO DAILY 07/29/21 12/28/21 Benzonatate [Tessalon] 100 - 200 mg PO TID PRN #30 cap 11/23/21 12/28/21 - LABS Result Diagrams: 12/28/21 07:05 12/28/21 07:05 - SEPSIS Current Stage of Sepsis: Ruled out"
[2021-12-28] MEDS ORDERED: SODIUM CHLORIDE 0.9% 500 ML IV ONE (17:47)
[2021-12-28 18:49] VITALS: BP 90/46
[2021-12-28] MEDS ORDERED: INSULIN GLARGINE 300 UNIT/3 ML PEN SUBQ SCH (21:00)
[2021-12-29] MEDS ORDERED: ATORVASTATIN 40 MG TABLET PO SCH (21:00)
== END 2021-12-28 19:00 | disposition short-term general hospital (02) ==
LOC: EDUNIT# → ED 06:50 → ICU 10:10
PROVIDERS: ADMIT Specialist; ATTEND Specialist
DX: J96.01 Acute respiratory failure with hypoxia (principal); I13.0 Hypertensive heart and chronic kidney disease with heart failure and stage 1 through stage 4 chronic kidney disease, or unspecified chronic kidney disease; I50.43 Acute on chronic combined systolic (congestive) and diastolic (congestive) heart failure; I21.4 Non-ST elevation (NSTEMI) myocardial infarction; I16.1 Hypertensive emergency; N18.9 Chronic kidney disease, unspecified; E11.22 Type 2 diabetes mellitus with diabetic chronic kidney disease; N17.9 Acute kidney failure, unspecified; I25.10 Atherosclerotic heart disease of native coronary artery without angina pectoris; J44.1 Chronic obstructive pulmonary disease with (acute) exacerbation; Z66 Do not resuscitate; R00.0 Tachycardia, unspecified; C50.919 Malignant neoplasm of unspecified site of unspecified female breast; Z95.1 Presence of aortocoronary bypass graft; Z79.82 Long term (current) use of aspirin; Z79.810 Long term (current) use of selective estrogen receptor modulators (SERMs); Z79.899 Other long term (current) drug therapy; Z79.84 Long term (current) use of oral hypoglycemic drugs; Z87.891 Personal history of nicotine dependence; M06.9 Rheumatoid arthritis, unspecified; I95.9 Hypotension, unspecified; Z20.822 Contact with and (suspected) exposure to COVID-19
CPT/HCPCS: 36415; 51701; 71045; 71275; 80053; 81001; 82803; 83605; 83690; 83880; 84484; 85025; 85379; 87631; 93005; 93970; 94640; 94660; 96372; 96374; 96375; 96376; 99285; 99291; 99292; A9270; G0378; J1650; Q9967; 0202U; 87086

== ENCOUNTER 2021-12-28 20:20 | Outpatient (CLI) | payer MEDICARE | END 2021-12-28 20:21 | disposition short-term general hospital (02) | LOC: EMS 20:20 | PROVIDERS: ATTEND Specialist | DX: I21.4 Non-ST elevation (NSTEMI) myocardial infarction (principal) | CPT/HCPCS: A0425; A0426 ==

== ENCOUNTER 2022-01-06 10:24 | Emergency (ER) | payer MEDICARE ==
[2022-01-06 10:37] VITALS: BP 129/52
--- NOTE | 2022-01-06 10:59 | ED Physician Documentation ---
History of Present Illness - Stated complaint Stated Complaint: LEAKING INCISION - Chief complaint Chief Complaint: Abd Pain - History obtained from History obtained from: Patient - History of Present Illness Timing: Today Pain level max: 0 Pain level now: 0 - Additonal information Additional information: 76-year-old female presents with clear fluid draining from a recent paracentesis site. Nothing makes it better or worse. No abdominal pain, fevers, chills, redness. 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 MANAGER: Breast cancer (stage 1), Other (2 children) : None HEENT: None Psych: None Musculoskeletal: Rheumatoid arthritis, Gout Derm: None - Past Surgical History Past Surgical History: Yes General: Cholecystectomy, Appendectomy /ACCOUNT SERVICES MANAGER: Tubal ligation Cardiovascular: CABG HEENT: Cataracts Derm: Skin cancer surgery - Present Medications Home Medications: Ambulatory Orders Medication Instructions Recorded Confirmed Aspirin 162 mg PO DAILY 05/25/14 01/06/22 Calcium Carb/Vitamin D3/Vit K1 600 mg PO BID 05/25/14 01/06/22 [Calcium + D Soft Chewable Tab] Folic Acid 1 mg PO DAILY 05/25/14 01/06/22 metFORMIN [Glucophage] 1,000 mg PO BID 05/25/14 01/06/22 Ascorbic Acid [Vitamin C with Vivi 1 tab PO DAILY 08/29/18 01/06/22 Hips] Iron,Carbonyl [Iron Chews] 65 mg PO DAILY 08/29/18 01/06/22 Tamoxifen [Nolvadex] 20 mg PO DAILY 03/27/19 01/06/22 Glimepiride [Amaryl] 2 mg PO DAILY 07/29/21 01/06/22 Leflunomide [Arava] 20 mg PO DAILY 07/29/21 01/06/22 Atorvastatin Calcium 40 mg PO HS 01/06/22 01/06/22 Metoprolol Succinate [Toprol Xl] 25 mg PO DAILY 01/06/22 01/06/22 Prednisone [Monique] 1 mg PO DAILY 01/06/22 01/06/22 - Allergies Allergies/Adverse Reactions: Allergies Allergy/AdvReac Type Severity Reaction Status Date / Time lisinopril Allergy Edema Verified 01/06/22 10:37 Penicillins AdvReac Hives Verified 01/06/22 10:37 Sulfa (Sulfonamide AdvReac Rash Verified 01/06/22 10:37 Antibiotics) venom-honey bee AdvReac Edema Verified 01/06/22 10:37 [bee venom (honey bee)] - Social History Does the pt smoke?: No Smoking Status: Never smoker Does the pt drink ETOH?: No Does the pt have substance abuse?: No - Immunizations Immunizations are current?: Yes - POLST Patient has POLST: No POLST Status: DNR PD ED PE NORMAL - Vitals Vital signs reviewed: Yes - General General: Alert and oriented X 3, No acute distress - Respiratory Respiratory: No respiratory distress, Clear bilaterally - Abdomen Abdomen: Soft, Non tender, Other (small clear fluid leak, from paracentesis site. no signs of infection) - Derm Derm: Warm and dry - Neuro Neuro: Alert and oriented X 3 Results - Vitals Vitals: Vital Signs - 24 hr 01/06/22 10:34 Temperature 35.5 C L Heart Rate 79 Respiratory 18 Rate Blood Pressure 129/52 L O2 Saturation 98 Oxygen O2 Source Room air PD MEDICAL DECISION MAKING - ED course Complexity details: considered differential, d/w patient ED course: Dermabond was applied to the area. No further leaking. No signs of infection. Patient counseled regarding signs and symptoms for which I believe and urgent re-evaluation would be necessary. Patient with good understanding of and agreement to plan and is comfortable going home at this time This document was made in part using voice recognition software. While efforts are made to proofread this document, sound alike and grammatical errors may occur. Departure - Departure Disposition: 01 Home, Self Care Clinical Impression: Visit for wound check Condition: Good Instructions: ED Wound Check Post Op No Infec Follow-Up: Ruthie Resendiz PA-C [Primary Care Provider] - Within 1 week Comments: Follow-up with your doctor as needed for further care. Return if you worsen. The glue should stop the leaking. There are no signs of infection today. Discharge Date/Time: 01/06/22 11:23
== END 2022-01-06 11:23 | disposition home or self-care (01) ==
LOC: ED 10:24
DX: L76.22 Postprocedural hemorrhage of skin and subcutaneous tissue following other procedure (principal); Y84.4 Aspiration of fluid as the cause of abnormal reaction of the patient, or of later complication, without mention of misadventure at the time of the procedure
CPT/HCPCS: 99281; 99282

== ENCOUNTER 2022-01-12 14:15 | Outpatient (CLI) | payer MEDICARE ==
[2022-01-12 18:36] LABS: ALBUMIN 2.9 g/dL (3.2-5.5); ALBUMIN/GLOBULIN RATIO 0.9 (1.0-2.2); BILIRUBIN,TOTAL 0.7 mg/dL (0.2-1.0); CALCIUM 8.7 mg/dL (8.5-10.3); CREATININE 1.4 mg/dL (0.4-1.0); MAGNESIUM 1.2 mg/dL (1.7-2.8); POTASSIUM 3.6 mmol/L (3.5-5.0); TOTAL PROTEIN 6.2 g/dL (6.7-8.2)
== END 2022-01-12 14:16 | disposition home or self-care (01) ==
LOC: LAB.N 14:15
PROVIDERS: ATTEND Physician Assistant
DX: R18.8 Other ascites (principal)
CPT/HCPCS: 36415; 80053; 83735

== ENCOUNTER 2022-01-20 16:18 | Outpatient (CLI) | payer MEDICARE ==
[2022-01-20 17:27] LABS: BASOPHILS % (AUTO) 1.2 %; HCT - HEMATOCRIT 29.6 % (37.0-47.0); MEAN CORPUSCULAR HEMOGLOBIN 28.4 pg (27.0-31.0); MEAN CORPUSCULAR HGB CONC 30.4 g/dL (32.0-36.0); MEAN CORPUSCULAR VOLUME 93.4 fL (81.0-99.0); MEAN PLATELET VOLUME 11.4 fL (7.9-10.8); NEUTROPHILS % (AUTO) 78.4 %; PLT - PLATELET COUNT 84 10^3/uL (130-450); RED BLOOD COUNT 3.17 10^6/uL (4.20-5.40); RED CELL DISTRIBUTION WIDTH 15.1 % (12.0-15.0); WHITE BLOOD COUNT 2.5 x10^3/uL (4.8-10.8)
[2022-01-20 17:36] LABS: ALBUMIN/GLOBULIN RATIO 0.9 (1.0-2.2); BILIRUBIN,TOTAL 0.9 mg/dL (0.2-1.0); CALCIUM 8.3 mg/dL (8.5-10.3); CREATININE 1.5 mg/dL (0.4-1.0); TOTAL PROTEIN 6.3 g/dL (6.7-8.2)
[2022-01-20 17:41] LABS: ABNORMAL LYMPHS % (MANUAL) 0 %
[2022-01-20 17:46] LABS: INR 1.1 (0.8-1.2); PT - PROTHROMBIN TIME 12.5 secs (9.9-12.6)
[2022-01-20 18:56] LABS: BAND NEUTROPHILS % (MANUAL) 4 %; EOSINOPHILS # (MANUAL) 0.1 10^3/uL (0-0.7); LYMPHOCYTES # (MANUAL) 0.2 10^3/uL (1.5-3.5); LYMPHOCYTES % (MANUAL) 1 %; MONOCYTES # (MANUAL) 0.2 10^3/uL (0.0-1.0); NEUTROPHILS # (MANUAL) 2.1 10^3/uL (1.5-6.6); REACTIVE LYMPHS % (MANUAL) 5 %
[2022-01-20 18:57] LABS: RBC MORPHOLOGY (MULTIPLE) NORMAL APPEARANCE (NORMAL)
[2022-01-20 18:58] LABS: DIFFERENTIAL COMMENT MANUAL DIFFERENTIAL; PLATELET MORPHOLOGY D (NORMAL)
== END 2022-01-20 16:19 | disposition home or self-care (01) ==
LOC: LAB.N 16:18
PROVIDERS: ATTEND Physician Assistant
DX: R18.8 Other ascites (principal)
CPT/HCPCS: 36415; 80053; 81599; 82105; 82140; 85025; 85610

== ENCOUNTER 2022-01-20 17:31 | Emergency (ER) | payer MEDICARE ==
--- NOTE | 2022-01-20 19:13 | ED Physician Documentation ---
PD HPI ABD PAIN - Stated complaint Stated Complaint: ABD PX/GURGLING/N/D - Chief complaint Chief Complaint: Abd Pain - History obtained from History obtained from: Patient - History of Present Illness Timing - onset: Today Timing - duration: Days (1) Timing - details: Gradual onset, Intermittant Pain level max: 1 Pain level now: 0 Quality: Cramping Location: All over / everywhere Associated symptoms: No: Fever, Nausea, Vomiting, Hematemesis, Diarrhea, Constipation, Melena, Hematochezia, Dysuria - Additional information Additional information: Patient is a 76-year-old female with a history of what appears to be cirrhosis. She states that she occasionally has mild abdominal cramping. None currently. She was getting blood work today at the lab. She states that her doctor came h ere to ensure that her abdomen was not infected. No fevers. No vomiting. No blood in the stool. Nothing makes it better or worse. 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: Breast cancer, Other : None HEENT: None Psych: None Musculoskeletal: Rheumatoid arthritis, Gout Derm: None - Past Surgical History Past Surgical History: Yes General: Cholecystectomy, Appendectomy /PERFORMANCE IMPROVEMENT MANAGER: Tubal ligation Cardiovascular: CABG HEENT: Cataracts Derm: Skin cancer surgery - Present Medications Home Medications: Ambulatory Orders Medication Instructions Recorded Confirmed Aspirin 162 mg PO DAILY 05/25/14 01/20/22 Calcium Carb/Vitamin D3/Vit K1 600 mg PO BID 05/25/14 01/20/22 [Calcium + D Soft Chewable Tab] Folic Acid 1 mg PO DAILY 05/25/14 01/20/22 metFORMIN [Glucophage] 1,000 mg PO BID 05/25/14 01/20/22 Ascorbic Acid [Vitamin C with Vivi 1 tab PO DAILY 08/29/18 01/20/22 Hips] Iron,Carbonyl [Iron Chews] 65 mg PO DAILY 08/29/18 01/20/22 Tamoxifen [Nolvadex] 20 mg PO DAILY 03/27/19 01/20/22 Glimepiride [Amaryl] 2 mg PO DAILY 07/29/21 01/20/22 Leflunomide [Arava] 20 mg PO DAILY 07/29/21 01/20/22 Atorvastatin Calcium 40 mg PO HS 01/06/22 01/20/22 Metoprolol Succinate [Toprol Xl] 25 mg PO DAILY 01/06/22 01/20/22 Prednisone [Monique] 1 mg PO DAILY 01/06/22 01/20/22 Furosemide [Lasix] 20 mg PO DAILY 01/20/22 01/20/22 Spironolactone [Aldactone] 50 mg PO DAILY 01/20/22 01/20/22 - Allergies Allergies/Adverse Reactions: Allergies Allergy/AdvReac Type Severity Reaction Status Date / Time lisinopril Allergy Edema Verified 01/20/22 17:43 Penicillins AdvReac Hives Verified 01/20/22 17:43 Sulfa (Sulfonamide AdvReac Rash Verified 01/20/22 17:43 Antibiotics) venom-honey bee AdvReac Edema Verified 01/20/22 17:43 [bee venom (honey bee)] - Social History Does the pt smoke?: No Smoking Status: Former smoker Does the pt drink ETOH?: No Does the pt have substance abuse?: No - Immunizations Immunizations are current?: Yes - POLST Patient has POLST: No POLST Status: DNR PD ED PE NORMAL - Vitals Vital signs reviewed: Yes - General General: Alert and oriented X 3, No acute distress - HEENT HEENT: Moist mucous membranes - Neck Neck: Supple, no meningeal sign - Cardiac Cardiac: RRR - Respiratory Respiratory: No respiratory distress, Clear bilaterally - Abdomen Abdomen: Soft, Non tender, Other (Mildly distended. Not tense. No pain) - Back Back: No spinal TTP - Derm Derm: Warm and dry - Extremities Extremities: No edema - Neuro Neuro: Alert and oriented X 3 Results - Vitals Vitals: Vital Signs - 24 hr 01/20/22 01/20/22 01/20/22 17:36 17:59 19:35 Temperature 36.5 C 36.5 C Heart Rate 88 86 81 Respiratory 28 H 18 18 Rate Blood Pressure 122/62 115/64 118/62 O2 Saturation 97 99 99 Oxygen O2 Source Room air PD MEDICAL DECISION MAKING - ED course Complexity details: reviewed results, re-evaluated patient, considered differential, d/w patient ED course: 76-year-old female is asymptomatic here. No evidence of SBP. I reviewed her outpatient blood work and this is without significant acute abnormalities. She does have chronic pancytopenia, consistent with her liver disease. Patient is unsure why she was sent here. Her doctor did not call or leave any information about the patient. Attempted to contact the provider with out a call back. As the patient is asymptomatic, we will have her follow-up in the office for further care. Patient counseled regarding signs and symptoms for which I believe and urgent re-evaluation would be necessary. Patient with good understanding of and agreement to plan and is comfortable going home at this time This document was made in part using voice recognition software. While efforts are made to proofread this document, sound alike and grammatical errors may occur. Departure - Departure Disposition: 01 Home, Self Care Clinical Impression: Ascites Qualifiers: Ascites type: other type Qualified Code(s): R18.8 - Other ascites Condition: Good Instructions: ED Abdominal Pain Female Non-Specific Abdominal Pain Follow-Up: Radha Ferreira PA [Primary Care Provider] - Tomorrow Comments: It is unclear why your PA referred you to the emergency department. There was no paperwork or phone call received about what they were looking for. Your labs do not show any specific abnormalities today. Other than abnormalities consistent with your liver disease. Continue your current medications at home. If your doctor would like to schedule a paracentesis for you, they can do this through radiology. There are no signs of infection today. Discharge Date/Time: 01/20/22 19:35
[2022-01-20 19:36] VITALS: BP 118/62
== END 2022-01-20 19:35 | disposition home or self-care (01) ==
LOC: ED 17:31
DX: R18.8 Other ascites (principal); I10 Essential (primary) hypertension; E11.9 Type 2 diabetes mellitus without complications; Z79.84 Long term (current) use of oral hypoglycemic drugs; Z95.1 Presence of aortocoronary bypass graft; Z87.891 Personal history of nicotine dependence
CPT/HCPCS: 36415; 80053; 81599; 82105; 82140; 83690; 85025; 85610; 99282; 99283

== ENCOUNTER 2022-01-21 16:19 | Outpatient (CLI) | payer MEDICARE ==
--- NOTE | 2022-01-22 09:47 | XRAY Report ---
PROCEDURE: Chest 2 View X-Ray INDICATIONS: DYSPNEA TECHNIQUE: 2 view(s) of the chest. COMPARISON: Prior CT scan dated 12/28/2021 and chest radiograph dated 12/28/2021.. FINDINGS: Surgical changes and devices: Median sternotomy, right lumpectomy, right axillary node resection. Lungs and pleura: Resolution of pulmonary edema. No pleural effusions or pneumothorax. Chronic elevat ion the right hemidiaphragm. Bibasilar streaky opacities are present, left greater than right which a ppear similar to prior examinations. Mediastinum: Mediastinal contours are normal. Heart size is within normal limits. Bones and chest wall: No suspicious bony abnormalities. Soft tissues appear unremarkable. IMPRESSION: 1. Resolution of pulmonary edema. 2. Bibasilar streaky opacities similar prior examination suggesting atelectasis and/or scarring and n o focal lung consolidation is present. Reviewed by: WARREN Suarez on 01/22/2022 9:46 AM PST Approved by: Jimmy Du MD on 01/22/2022 9:46 AM PST Station ID: [id number]
== END 2022-01-21 16:20 | disposition home or self-care (01) ==
LOC: DI.N 16:19
PROVIDERS: ATTEND Physician Assistant
DX: R06.00 Dyspnea, unspecified (principal)

== ENCOUNTER 2022-03-02 11:15 | Outpatient (CLI) | payer MEDICARE ==
--- NOTE | 2022-03-02 11:37 | XRAY Report ---
PROCEDURE: Chest 2 View X-Ray INDICATIONS: COUGH TECHNIQUE: 2 view(s) of the chest. COMPARISON: January 21, 2022 FINDINGS: SUPPORT DEVICES: Sternotomy wire alignment is maintained. Evidence of CABG. LUNGS/PLEURA: Persistent elevation of the right diaphragm. Bibasilar linear densities, which may refl ect atelectasis/scar. The remaining lung zones well aerated. No large pleural effusion or pneumothora x. MEDIASTINUM: The cardiomediastinal silhouette is within normal limits. BONES/SOFT TISSUES: No acute abnormality. Right axilla surgical clips. IMPRESSION: 1.No acute cardiopulmonary abnormality. Reviewed by: Christ Shea MD on 03/02/2022 11:36 AM PDT Approved by: Christ Shea MD on 03/02/2022 11:36 AM PDT Station ID: [id number]
== END 2022-03-02 11:16 | disposition home or self-care (01) ==
LOC: DI 11:15
PROVIDERS: ATTEND Physician Assistant
DX: R05.9 Cough, unspecified (principal)

== ENCOUNTER 2022-03-12 11:20 | Outpatient (CLI) | payer MEDICARE ==
[2022-03-12 19:22] LABS: CALCIUM 7.5 mg/dL (8.5-10.3); CREATININE 1.7 mg/dL (0.4-1.0); POTASSIUM 4.1 mmol/L (3.5-5.0)
== END 2022-03-12 11:21 | disposition home or self-care (01) ==
LOC: LAB.N 11:20
PROVIDERS: ATTEND Physician Assistant Medical
DX: E11.9 Type 2 diabetes mellitus without complications (principal)
CPT/HCPCS: 36415; 80048; 81599; 83036

== ENCOUNTER 2022-03-26 13:54 | Outpatient (CLI) | payer MEDICARE ==
[2022-03-26 14:18] LABS: BASOPHILS % (AUTO) 0.7 %; EOSINOPHILS # (AUTO) 0.1 10^3/uL (0.0-0.7); EOSINOPHILS % (AUTO) 1.1 %; LYMPHOCYTES # (AUTO) 0.3 10^3/uL (1.5-3.5); LYMPHOCYTES % (AUTO) 5.1 %; MEAN CORPUSCULAR HEMOGLOBIN 28.8 pg (27.0-31.0); MEAN CORPUSCULAR VOLUME 92.9 fL (81.0-99.0); MEAN PLATELET VOLUME 11.1 fL (7.9-10.8); MONOCYTES # (AUTO) 0.8 10^3/uL (0.0-1.0); MONOCYTES % (AUTO) 13.5 %; NEUTROPHILS # (AUTO) 4.5 10^3/uL (1.5-6.6); NEUTROPHILS % (AUTO) 79.1 %; PLT - PLATELET COUNT 127 10^3/uL (130-450); RED BLOOD COUNT 3.12 10^6/uL (4.20-5.40); RED CELL DISTRIBUTION WIDTH 15.7 % (12.0-15.0); WHITE BLOOD COUNT 5.7 x10^3/uL (4.8-10.8)
[2022-03-26 14:32] LABS: CALCIUM 7.8 mg/dL (8.5-10.3); CREATININE 1.8 mg/dL (0.4-1.0); POTASSIUM 4.2 mmol/L (3.5-5.0)
--- NOTE | 2022-03-26 15:29 | Ultrasound Report ---
PROCEDURE: Duplex Ext Veins Right INDICATIONS: EDEMA TECHNIQUE: Real-time imaging, as well as color and pulse Doppler interrogation, were performed of the lower extr emity deep veins from the inguinal ligament to the popliteal fossa. COMPARISON: 12/28/2021. FINDINGS: There is acute nonocclusive thrombus identified within the deep veins of the right lower e xtremity extending from the distal right external iliac vein to the right distal posterior tibial vei n/peroneal vein. No focal fluid collection seen. IMPRESSION: Acute, nonocclusive thrombus involving the deep veins of the right lower extremity visua lized from the distal right external iliac vein to the level of the distal right posterior tibial vei n/peroneal vein. Findings were relayed to the ordering physician's nurse, Dona, at 1456 hours by the managed services sales consultant. Reviewed by: Nando Burkett MD on 03/26/2022 3:27 PM PDT Approved by: Nando Burkett MD on 03/26/2022 3:27 PM PDT Station ID: [id number]
== END 2022-03-26 13:55 | disposition home or self-care (01) ==
LOC: DI 13:54
PROVIDERS: ATTEND Internal Medicine
DX: I82.421 Acute embolism and thrombosis of right iliac vein (principal); I82.441 Acute embolism and thrombosis of right tibial vein; I10 Essential (primary) hypertension
CPT/HCPCS: 36415; 80048; 83880; 85025; 85379

== ENCOUNTER 2022-04-01 07:45 | Outpatient (CLI) | payer MEDICARE ==
--- NOTE | 2022-04-01 09:12 | Ultrasound Report ---
PROCEDURE: Abdomen Complete INDICATIONS: CIRRHOSIS TECHNIQUE: Real-time scanning was performed of the abdominal and retroperitoneal organs, with image documentatio n. COMPARISON: December 26, 2021. FINDINGS: AORTA: The visualized abdominal aorta is normal. IVC: The visualized IVC is normal. LIVER: Measures 17.8 cm in length. Heterogeneous echotexture. No appreciable mass. The portal vein is patent. PANCREAS: The visualized portions of the pancreas are normal. Gallbladder and biliary tree: Gallbladder is surgically absent. The common bile duct measures up to 7.1 mm. RIGHT KIDNEY: Normal in appearance with no hydronephrosis. Measuring 9 cm in length. The renal sonam ex thickness measures 1.4 cm. LEFT KIDNEY: Mild bilateral hydronephrosis versus pelviectasis.. Measuring 8.2 cm in length. The re nal cortex thickness measures 1.3 cm. Bilateral hypoechoic lesions, most consistent with cysts. Spleen: Normal contour, measuring 11.4 cm in length. Ascites is present. IMPRESSION: 1.Heterogeneous echotexture the liver. 2.Ascites. 3. Mild bilateral hydronephrosis versus pelviectasis. Reviewed by: Christ Shea MD on 04/01/2022 9:10 AM PDT Approved by: Christ Shea MD on 04/01/2022 9:10 AM PDT Station ID: [id number]
== END 2022-04-01 07:46 | disposition home or self-care (01) ==
LOC: DI 07:45
PROVIDERS: ATTEND Physician Assistant
DX: K74.60 Unspecified cirrhosis of liver (principal); R18.8 Other ascites; R93.422 Abnormal radiologic findings on diagnostic imaging of left kidney

== ENCOUNTER 2022-04-01 07:46 | Outpatient (CLI) | payer MEDICARE ==
--- NOTE | 2022-04-01 08:47 | XRAY Report ---
PROCEDURE: Abdomen 2 View X-Ray INDICATIONS: ANOREXIA,ANEMIA,ASCITES TECHNIQUE: 2 views of the abdomen were acquired. COMPARISON: Reference is made to CT abdomen dated May 18, 2019. FINDINGS: Surgical changes and devices: Cholecystectomy clips. Bowel: No pneumoperitoneum. Nonspecific bowel gas pattern. Soft tissues: No masses; visualized solid organ contours appear normal in size. No suspicious abdom inal calcifications. Bones: No suspicious bony abnormalities. Multifocal degenerative change. IMPRESSION: Nonobstructive bowel gas pattern. Reviewed by: Christ Shea MD on 04/01/2022 8:46 AM PDT Approved by: Christ Shea MD on 04/01/2022 8:46 AM PDT Station ID: [id number]
== END 2022-04-01 07:47 | disposition home or self-care (01) ==
LOC: DI 07:46
PROVIDERS: ATTEND Internal Medicine Gastroenterology
DX: R63.0 Anorexia (principal); D50.0 Iron deficiency anemia secondary to blood loss (chronic); R18.8 Other ascites; K74.60 Unspecified cirrhosis of liver; R93.422 Abnormal radiologic findings on diagnostic imaging of left kidney

== ENCOUNTER 2022-06-11 16:55 | Outpatient (CLI) | payer MEDICARE ==
--- NOTE | 2022-06-11 18:04 | XRAY Report ---
PROCEDURE: Ribs w/PA Chest RT INDICATIONS: RIB PAIN, RIGHT SIDED TECHNIQUE: 3 views of the right ribs were acquired, along with a single view chest. COMPARISON: Chest radiograph dated 03/02/2022 FINDINGS: Surgical changes and devices: Median sternotomy wires are again seen. Surgical clips are noted in gal lbladder fossa and right axilla. Bones and chest wall: No fractures or dislocations. No suspicious bony lesions. Overlying soft tis sues appear unremarkable. Lungs and pleura: Elevation of right hemidiaphragm is noted with blunting of right costophrenic angle suggestive of small right pleural effusion. Linear scarring/atelectasis in left lower lung field is seen. Right basilar atelectasis is also noted. Mediastinum: Mediastinal contours appear normal. Heart size is enlarged. IMPRESSION: No obvious displaced right rib fracture is seen. Persistent small right pleural effusion and elevation of right hemidiaphragm with bibasilar atelectas is/scarring. No pneumothorax. Reviewed by: James Tomlin MD on 06/11/2022 6:02 PM PDT Approved by: James Tmolin MD on 06/11/2022 6:02 PM PDT Station ID: [id number]
== END 2022-06-11 16:56 | disposition home or self-care (01) ==
LOC: DI 16:55
PROVIDERS: ATTEND Internal Medicine
DX: J90 Pleural effusion, not elsewhere classified (principal); J98.11 Atelectasis; R07.81 Pleurodynia